=== PATIENT | female | born 1960 | race Caucasian/White ===

== ENCOUNTER 2021-01-08 07:07 | Inpatient (IN) | payer MEDICAID, SELFPAY ==
[2021-01-08] VITALS (15 sets, daily range): BP systolic 127–152; BP diastolic 85–105; PULSE 84–110; RESP 18–24; TEMP 36.3–37.3; O2SAT 90–99; BMI 21.1; BMI 19.7
--- NOTE | 2021-01-08 07:14 | W.ED.CHESTPA ---
HPI - Chest Pain General: Chief Complaint: Medical Clearance Stated Complaint: NONSTEMI-direct admit Time Seen by Provider: 01/08/21 07:11 Source: patient, RN notes reviewed and old records reviewed Mode of arrival: EMS Limitations: no limitations History of Present Illness: HPI narrative: This patient presents to the emergency department for medical screening exam for direct admission to the floor for a non-STEMI. Patient developed arrived from EMS from [facility] in [place]. Dr. Weber is the accepting physician. Cardiology patient was given Lovenox injection prior to leaving [facility]. Patient has a long history of smoking. States little bit of shortness of breath but denies any significant chest pain. MD complaint: chest heaviness Pertinent past history: coronary artery disease Onset: during rest Pain location: substernal Pain radiation: none Severity: moderate Quality: tightness Relieving factors: nothing Exacerbating factors: nothing Associated symptoms: Reports dyspnea; Deny abdominal pain, fever(s), nausea, palpitations or vomiting Review of Systems General: Reports: 10 or more systems reviewed and unremarkable except in HPI and below Const: Denies: fever(s) or chills Eyes: Denies: change in vision or eye discomfort ENMT: Denies: throat pain Card: Reports: chest pain and dyspnea on exertion; Denies: palpitations, irregular heart rhythm, swelling of feet/ankles or lightheadedness Resp: Reports: dyspnea; Denies: productive cough, non-productive cough, wheezing, stridor or pain on inspiration GI: Denies: abdominal pain, nausea or vomiting Musc: Denies: back pain Skin/Breast: Denies: rash Neuro: Denies: headache(s) or numbness in extremities Psych: Denies: anxiety or depression PFS ED PFSH: Social History (Updated 01/08/21 @ 07:24 by Shoaib Soto RN) Smoking and tobacco status: current every day smoker cigarettes Packs smoked per day: 1 Alcohol intake: current Alcohol intake frequency: few times a week Substance/Drug Use: never Physical Exam Const: COMMON NORMALS: no acute distress, average body habitus, patient oriented x3, no limitations, healthy appearing, alert and well nourished HENMT: COMMON NORMALS: normocephalic HEAD & SCALP: normocephalic Eye: COMMON NORMALS: Equal, round and reactive pupils present and EOMs intact bilaterally PUPIL: Yes Equal, round and reactive pupils present Neck/C-Spine: COMMON NORMALS: no JVD Chest: COMMONS NORMALS: normal inspection of the chest and normal palpation of entire chest wall Resp: COMMON NORMALS: normal respiratory effort, No retractions, No use of accessory muscles and clear to auscultation bilaterally EFFORT & INSPECTION: Yes able to speak in complete sentences AUSCULTATION: clear to auscultation bilaterally Cardio: COMMON NORMALS: no JVD, regular rate and regular rhythm RATE: regular rate RHYTHM: regular rhythm GI: COMMON NORMALS: Normal to inspection, nondistended, normoactive bowel sounds present and Soft to palpation PALPATION: Yes Soft to palpation Extremity: COMMON NORMALS: normal to inspection and full ROM Neuro: COMMON NORMALS: patient oriented x3 SENSORIUM/ORIENTATION: Yes alert Course ED course: Medical screening exam complete. Patient has admitted to the hospital for Dr. Weber who is excepting this patient. Dr. Weber will see patient upon arrival to floor. Vital Signs: Vital signs: Vital Signs Temperature 98.0 F 01/08/21 07:12 Pulse Rate 101 H 01/08/21 07:12 Respiratory Rate 24 H 01/08/21 07:12 Blood Pressure 134/93 01/08/21 07:12 Pulse Oximetry 99 01/08/21 07:12 MDM - Chest Pain Differential Diagnosis: Cardiac arrest differential diagnosis: Likely acute myocardial infarction EKG Data^: EKG 1: EKG interpretation date: 01/08/21 EKG interpretation time: 07:34 Prior EKG tracings: not available for review Ischemic changes: non-specific ST-T wave changes Interpretation: Sinus rhythm with a heart rate of 80 a possible left atrial enlargement moderate ST depression really nonspecific changes. Computer generated interpretation: Nonspecific EKG Discharge Plan Discharge Patient Disposition: Admitted As Inpatient Clinical Impression: Non-ST elevated myocardial infarction (non-STEMI) Condition: Stable Coding Level of Care Code ED Netsuite Developer for Ermelinda Fwd Exam Comprehensive
--- NOTE | 2021-01-08 07:18 | ECG_ITS ---
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 Measurements Intervals [place] Rate: 88 P: 72 HI: 139 QRS: 74 QRSD: 103 T: 70 QT: 395 QTc: 480 Interpretive Statements SINUS RHYTHM POSSIBLE LEFT ATRIAL ENLARGEMENT [-0.1mV P WAVE IN V1/V2] MODERATE ST DEPRESSION [0.05+ mV ST DEPRESSION] No previous ECG available for comparison Electronically Signed On 01-08-2021 19:22:10 STAGING TECHNICIAN by Nikki Restrepo M.D. [id number]
--- NOTE | 2021-01-08 09:05 | PC.PHAR ---
pt states she takes no prescription medications-pt states she only takes aspirin prn-pt states she is unsure if it is 81mg or 325mg-pt states she buys kcl over the counter-pt states she alternates by taking 2 tabs one day and then 1 tab the next day-pt states she took 2 tabs on 01/07/21-
--- NOTE | 2021-01-08 09:46 | PC.NURSE ---
patient arrived from er via stretcher. patient transferred by staff over to bed. vitals and weight obtained. assessment performed and charted. patient ambulated by self to bathroom. patient is A&O X3. call light within reach, no other needs identified at this time.
--- NOTE | 2021-01-08 11:58 | PC.NURSE ---
Dr. Franco gave verbal order for one time 325mg aspirin, and 0.5 inch nitro paste Q6h.
[2021-01-08] MEDS: aspirin 325 mg Tablet PO (12:28)
[2021-01-08] MEDS: nitroglycerin 1 gm/inch oint Pkt 0.5 INCH TOPICAL ×3 (12:28→23:27)
[2021-01-08] MEDS: pantoprazole DR 40 mg Tablet PO (12:28)
[2021-01-08] MEDS: lactated ringers 1,000 ML 100 ML IV (12:28)
--- NOTE | 2021-01-08 12:31 | PC.CHAP ---
Pastoral Care Encounter/Spiritual Assessment Type of Contact [] Declined pusher operator visit [] Patient/Family/Request visit [] Outpatient visit [] Follow-up visit [] Physician referral [] Code/Alert [] Routine visit [] Staff referral [] Actively dying [] Patient sleeping [] Family support [] [] Out of room [] Palliative care [] [] Receiving care in room [] Pre-surgical visit [] Trauma [] Long length of stay [] ICU visit [XX] Other:Staff told pusher operator not to see today. Relational/Emotional Strength [] Patient feels connected with others/family/visitors/staff [] Distress [] Loneliness/isolation [] Abandonment Spirituality of Patient [] Person of Mayra [] Attends Buddhism of their Mayra [] Believes in Prayer [] Reads Bible or Restorationism materials [] There are Spiritual issues to be addressed Clinical Data Manager Interventions [] Prayer [] Active listening [] Non-anxious presence [] Spiritual/emotional support [] Crisis/trauma care [] Spiritual counseling [] Bereavement support [] Provided bereavement packet [] Provided Bible/devotional materials [] Provided toy/stuffed animal, coloring book to patient or family member [] Provided Communion [] Anointing/Deposit [] Salvation [] Completed spiritual assessment [] Other: Impact on Illness or Injury [] Angry [] Fearful [] Anxious [] Often cries [] Exhaustion [] Unable to work [] Unable to attend pentecostalism [] Unable to walk/stand [] Unable to read [] Unable to drive [] Unable to eat/drink [] Unable to sleep [] Unable to be with family [] Patient intubated [] Other: Summary Time spent with patient
[2021-01-08 12:55] LABS: Basophils % 0.1 %; Hematocrit 35.3 % (37.0-47.0); Hemoglobin 11.6 g/dL (11.5-15.3); Lymphocytes # 0.6 10^3/uL (0.8-4.8); Lymphocytes % 4.4 %; Mean Corpuscular HGB Conc 32.9 g/dL (30.0-36.0); Mean Corpuscular Hemoglobin 29.7 pg (28.0-34.0); Mean Corpuscular Volume 90.5 fL (81-99); Mean Platelet Volume 9.8 fL (7.4-10.4); Monocytes # 0.2 10^3/uL (0.2-0.9); Monocytes % 1.2 %; Neutrophils # 12.94 10^3/uL (1.8-7.7); Neutrophils % 93.9 %; Nucleated Red Blood Cells % 0 %; Platelet Count 378 10^3/cmm (130-400); Red Cell Distribution Width 15.1 % (12.1-15.1); White Blood Count 13.8 10^3/uL (4.0-10.0)
[2021-01-08 13:14] LABS: INR 1.06 (0.8-1.2)
[2021-01-08 13:15] LABS: Partial Thromboplastin Time 36.6 SECONDS (23.9-36.7)
[2021-01-08 13:22] LABS: Alanine Aminotransferase 33 U/L (0-33); Albumin Level 3.6 g/dL (3.5-5.2); Alkaline Phosphatase 103 IU/L (35-105); Aspartate Amino Transferase 88 U/L (0-32); Blood Urea Nitrogen 5 mg/dL (8-23); Calcium 8.8 mg/dL (8.5-10.5); Carbon Dioxide 23 mmol/L (22-29); Chloride 99 mmol/L (98-107); Globulin 3.2 g/dL (1.3-4.6); Glomerular Filtration Rate 125.4 mL/min (90-130); Glucose 140 mg/dL (65-115); Magnesium 1.8 mg/dL (1.7-2.3); NT Pro B Type Natriuretic Pept 5372 pg/mL (0-125); Osmolality Calculated 278 mOsm/kg (285-295); Phosphorus 3.8 mg/dL (2.5-4.5); Sodium 134 mmol/L (136-145); Total Bilirubin 0.2 mg/dL (0.15-1.2); Total Protein 6.8 g/dL (6.6-8.7)
--- NOTE | 2021-01-08 13:28 | PM.HP ---
Providers/Chief Complaint Admitting Physician: Kaci Weber MD Chief Complaint: ELEVATED TROPONIN / DIRECT ADMIT History of Present Illness Deshawn Miller is a 60 year old female transferred from outside hospital where patient presented with gradually worsening shortness of breath over the last 3 days. She denied chest pain or abdominal pain. She has been having worsening paroxysmal atrial dyspnea and orthopnea but denies lower extremity swelling. She is a heavy smoker for many years and reports rarely productive smoker's cough which is unchanged in quantity or quality. She denies fevers or chills. At [facility] she was evaluated and found to have non-ST elevation CA and acute heart failure prompting further transfer and evaluation to our facility. She does not have a primary care physician. Reports only taking aspirin as needed and potassium that was prescribed by some physician long time ago. During my evaluation patient is chest pain-free. Review of Systems Const: Denies: fever(s) or chills Eyes: Denies: change in vision ENMT: Denies: throat pain or change in hearing Card: Denies: chest pain, edema or lightheadedness Resp: Reports: dyspnea; Denies: productive cough GI: Reports: constipation; Denies: abdominal pain, nausea, vomiting, dysphagia, diarrhea, hematochezia or melena : Denies: difficulty voiding Musc: Denies: joint pain or joint swelling Skin/Breast: Denies: rash or erythema Neuro: Denies: headache(s) or weakness in extremities Psych: Denies: depression or suicidal ideation Endo: Denies: excessive sweating Umesh/Lymph: Denies: easy bleeding or tender lymph nodes All/Imm: Denies: throat swelling Medications/Allergies Home Medications Medication Instructions Recorded Confirmed Last Taken Type aspirin 1 - 2 tab PO PRN 01/08/21 01/08/21 Unknown History ibuprofen [Advil] 200 mg PO PRN 01/08/21 01/08/21 Unknown History multivitamin 1 tab PO DAILY@08 01/08/21 01/08/21 01/07/21 History potassium gluconate See Rx Instructions .ROUTE .COMPLEX 01/08/21 01/08/21 01/07/21 History 2 tabs Allergies Allergy/AdvReac Type Severity Reaction Status Date / Time No Known Allergies Allergy Verified 01/08/21 09:04 PFSH Acute PFSH: Family History (Updated 01/08/21 @ 13:32 by Kvng Franco MD) Mother CAD (coronary artery disease) Diabetes Father CAD (coronary artery disease) Social History (Updated 01/08/21 @ 07:24 by Shoaib Soto RN) Smoking and tobacco status: current every day smoker cigarettes Packs smoked per day: 1 Alcohol intake: current Alcohol intake frequency: few times a week Substance/Drug Use: never Vitals/I&O/Wt Last Vital Signs Temp 97.4 F L 01/08/21 11:23 Pulse 84 01/08/21 11:23 Resp 24 H 01/08/21 11:23 BP 138/89 01/08/21 11:23 Pulse Ox 92 01/08/21 11:23 Weight last 48 hrs Weight 47.4 kg Weight 50.802 kg Physical Exam Const: COMMON NORMALS: no acute distress, patient oriented x3 and alert HENMT: COMMON NORMALS: normocephalic and atraumatic HEAD & SCALP: normocephalic and atraumatic Eye: COMMON NORMALS: EOMs intact bilaterally, conjunctivae normal and no scleral icterus ALIGNMENT: No alignment normal and Yes esotropia CONJUNCTIVA: Yes conjunctivae normal Neck/C-Spine: COMMON NORMALS: no lymphadenopathy and no meningeal signs Lymph: LYMPHATIC: no lymphadenopathy noted Chest: COMMONS NORMALS: normal palpation of entire chest wall Resp: COMMON NORMALS: No use of accessory muscles OTHER: Minimal bibasilar Rales and overall significant decreased air movement but no wheezing or rhonchi appreciated. Cardio: COMMON NORMALS: regular rate, regular rhythm and No murmurs present (Cardio) RATE: regular rate RHYTHM: regular rhythm OTHER: No lower extremity edema GI: COMMON NORMALS: Soft to palpation and non-tender PALPATION: Yes Soft to palpation RECTAL EXAM: deferred : COMMON NORMALS: Yes no CVA tenderness BLADDER/KIDNEY EXAM: Yes no CVA tenderness Back/Pelvis: COMMON NORMALS: no CVA tenderness and thoracic and lumbar spine normal to inspection Extremity: COMMON NORMALS: normal to inspection and capillary refill normal Neuro: COMMON NORMALS: patient oriented x3 and no focal motor deficits SENSORIUM/ORIENTATION: Yes alert MENINGEAL SIGNS: Yes no meningeal signs Psych: COMMON NORMALS: mental status grossly normal, Normal thought process present and cooperative THOUGHT PROCESS: Normal thought process present Skin: COMMON NORMALS: no rashes or lesions noted GENERAL SKIN EXAM: no rashes or lesions noted Data : 01/08/21 12:33 01/08/21 12:33 A&P Assessment and plan (1) Non-ST elevated myocardial infarction (non-STEMI): Status: Acute (2) Acute heart failure: Specifics unknown. Status: Acute (3) COPD (chronic obstructive pulmonary disease): Not in exacerbation Status: Acute (4) Tobacco abuse: Status: Acute Additional A&P Information PLAN: Discussed with Dr. Restrepo who will see patient in consultation. Will add half inch of nitroglycerin ointment every 6 hours and give 1 dose of Lasix. Therapeutically anticoagulated with Lovenox and start patient on aspirin and statin. Obtain echocardiogram to evaluate wall motion and ejection fraction. Discussed with patient regarding importance of smoking cessation. Patient voiced understanding and agreed to try nicotine patch. Obtain UA to rule out UTI Attestations Medical Necessity Statement*: CA and heart failure requires close inpatient monitoring, treatment and evaluation. I expect patient will require more than 2 midnights. Time Spent in Patient Care: Greater than 35 minutes Coding Level of Care Code Acute Horseradish Grinder for Ermelinda Brown Diagnoses Non-ST elevated myocardial infarction (non-STEMI) I21.4 Acute heart failure I50.9 COPD (chronic obstructive pulmonary disease) J44.9 Tobacco abuse Z72.0
--- NOTE | 2021-01-08 13:43 | USCV_ITS ---
Deshawn Miller Age: 60 Gender: F : 1960 Exam Date: 01/08/2021 14:02 Ordering Phys: Kvng Franco MD Technologist: Mando Garcia Exam Location: [facility] [place] Indication: [place] HEART FAILURE BP: 152 / 95 HR: 105 Rhythm: Sinus Technical Quality: Good MEASUREMENTS (Male / Female) Normal Values 2D ECHO LV Diastolic Diameter PLAX 4.2 cm 4.2 - 5.9 / 3.9 - 5.3 cm LV Systolic Diameter PLAX 3.8 cm IVS Diastolic Thickness 0.8 cm 0.6 - 1.0 / 0.6 - 0.9 cm IVS Systolic Thickness 1.0 cm LVPW Diastolic Thickness 0.9 cm 0.6 - 1.0 / 0.6 - 0.9 cm LVPW Systolic Thickness 1.1 cm LVOT Diameter 2.0 cm LV Ejection Fraction 2D Teich 10.5 % LV Ejection Fraction MOD 2C 45.5 % LV Ejection Fraction 2C AL 48.2 % LA Diameter 3.9 cm LA Width 4.2 cm LA Height 4.2 cm RA Width 4.0 cm RA Height 3.7 cm M-MODE LV Diastolic Diameter MM 4.3 cm 4.2 - 5.9 / 3.9 - 5.3 cm LV Systolic Diameter MM 3.5 cm LV Ejection Fraction MM Teich 40.4 % IVS Diastolic Thickness MM 0.5 cm 0.6 - 1.0 / 0.6 - 0.9 cm IVS Systolic Thickness MM 1.2 cm LVPW Diastolic Thickness MM 1.1 cm 0.6 - 1.0 / 0.6 - 0.9 cm LVPW Systolic Thickness MM 1.1 cm RV Diastolic Diameter MM 1.0 cm Aortic Annulus Diameter 3.2 cm LA Ao Ratio MM 1.3 MV E Point Septal Separation 2.3 cm DOPPLER AV Peak Velocity 132.0 cm/s LVOT Peak Velocity 77.0 cm/s AV Area Cont Eq vti 2.0 cm squared AV Area Cont Eq pk 1.9 cm squared MV Area PHT 5.0 cm squared Mitral E to A Ratio 1.0 MV E' Velocity 45.0 cm/s Mitral E to MV E' Ratio 17.4 Mitral E to LV E' Lateral Ratio 13.7 Mitral E to LV E' Septal Ratio 23.9 TR Peak Velocity 127.3 cm/s TR Peak Gradient 6.5 mmHg TV Peak E Velocity 98.0 cm/s Right Atrial Pressure 3.0 mmHg Pulmonary Artery Systolic Pressu 9.5 mmHg PV Peak Velocity 109.0 cm/s FINDINGS Left Ventricle Diffuse hypokinesis left ventricle with ejection fraction of around 35-40% Grade I/IV diastolic dysfunction (abnormal relaxation filling pattern), normal to mildly elevated filling pressures. Right Ventricle Normal right ventricular size and systolic function. Right Atrium Appears to be of normal size Left Atrium Appears to be of normal size Mitral Valve Thickened mitral valve. Mild mitral valve regurgitation. Aortic Valve Thickened aortic valve. Tricuspid Valve No gross abnormalities noted Pulmonic Valve Pulmonic valve not well visualized. Pericardium Normal pericardium without effusion. Aorta Normal ascending aorta dimension. CONCLUSIONS Diffuse hypokinesis left ventricle with ejection fraction of around 35-40% Grade I/IV diastolic dysfunction (abnormal relaxation filling pattern), normal to mildly elevated filling pressures. Thickened mitral valve. Mild mitral valve regurgitation. Thickened aortic valve. There is no pericardial effusion. There are no intracardiac masses. No previous study is available for comparison. Dr Nikki Restrepo MD FACC (Electronically Signed) Final Date: 08 January 2021 16:38 S
[2021-01-08] MEDS: FUROsemide 10 mg/mL SDV 4mL 40 MG IVP (14:11)
[2021-01-08] MEDS: enoxaparin 60 mg/0.6 mL Syringe 50 MG SUBCUT (14:11)
[2021-01-08 15:06] LABS: Add Urine Microscopic? NO
--- NOTE | 2021-01-08 15:17 | PC.NURSE ---
Dr. Franco notified of patient getting up to bedside commode and heart rate going to 130's. Patient is back at resting with a heart rate of 105-109.
[2021-01-08 15:23] LABS: Bilirubin Urine Neg (Negative); Blood Urine Neg (Negative); Glucose Urine UA Norm (Normal); Ketones Urine Negative (Negative); Leukocyte Esterase Urine Negative (Negative); Nitrate Urine Negative (Negative); Protein Urine Neg (Negative); Urine Appearance Clear (CLEAR); Urine Color Yellow (Yellow); Urobilinogen Urine Norm (Negative); pH Urine 6 (5-7)
--- NOTE | 2021-01-08 15:24 | P.CONIM_ITS ---
Providers/Reason For Consult Consulting Physican/Specialty*: RA KAT/Cardiology Reason for Consult*: NSTEMI/ CHF Attending Physician: Kvng Franco MD History of Present Illness History of Present Illness Deshawn Miller is a 60 year old female, is transferred from the [facility] in [place] where she presented with complaints of cough and? Shortness of breath. She was found to have elevated BNP and troponin T. She is transferred to our hospital for further evaluation management. Patient is a poor historian. According to her, she has not been to a physician for many years. For the last 1 week, she been having cough. She might have had some shortness of breath but she does not think that the shortness of breath was a major concern for her. The cough was getting worse and for that reason, she went to the hospital emergency room. Because of the elevated BNP and the troponin T, she was transferred to our hospital. The repeated troponin T in our hospital is 1166 with a BNP of 5372. Patient has no previous history for any coronary disease, myocardial infarction or congestive heart failure. She has a history of heavy smoking abuse. She smokes 2 pack a day for the last more than 30 years. She also smokes marijuana off and on. Occasional alcohol intake. No IV drug abuse or any other substance abuse. She is and lives with her children. She has no documented history for high blood pressure or diabetes. No history for CVA, peripheral artery disease, kidney disease, liver disease or bleeding disorders. She denies any chest pain. No other specific complaints at this time. At the time of my examination, she is back to her baseline. Review of Systems Narrative: CONSTITUTIONAL: No fever or chills. EYES: No blurring of vision or other visual disturbances lately. ENT: No hoarseness of voice, auditory disturbances or sore throat. CARDIOVASCULAR: As mentioned above. RESPIRATORY: Cough as mentioned above GASTROINTESTINAL: No hematemesis or melena. GENITOURINARY: No dysuria or hematuria. INTEGUMENTARY: No skin rashes or history of skin cancer. NEURO: No transient ischemic attacks or amaurosis. PSYCHIATRIC: No history of psychosis or major depression. HEMATOLOGIC: No bleeding disorders or significant anemia. ENDOCRINE: No history of polyuria or polydipsia. MUSCULOSKELETAL: No recent joint pain or swelling. ALLERGY/IMMUNOLOGY: As mentioned above. Meds/Allergies Home Medications and Allergies Home Medications Medication Instructions Recorded Confirmed Last Taken Type aspirin 1 - 2 tab PO PRN 01/08/21 01/08/21 Unknown History ibuprofen [Advil] 200 mg PO PRN 01/08/21 01/08/21 Unknown History multivitamin 1 tab PO DAILY@08 01/08/21 01/08/21 01/07/21 History potassium gluconate See Rx Instructions .ROUTE .COMPLEX 01/08/21 01/08/21 01/07/21 History 2 tabs Allergies Allergy/AdvReac Type Severity Reaction Status Date / Time No Known Allergies Allergy Verified 01/08/21 09:04 Current Medications Current Medications Generic Name Dose Route Start Last Admin Trade Name Freq PRN Reason Stop Dose Admin Enoxaparin Sodium 50 mg 01/08/21 15:00 01/08/21 14:11 Enoxaparin 60 Mg/0.6 Ml Syringe SUBCUT 50 mg Q12H JUNAID Administration Nitroglycerin 0.5 inch 01/08/21 12:00 01/08/21 12:28 Nitroglycerin 1 Gm/Inch Oint Pkt TOPICAL 0.5 inch Q6H JUNAID Administration Pantoprazole Sodium 40 mg 01/08/21 11:45 01/08/21 12:[address] 40 Mg Tablet PO 40 mg DAILY JUNAID Administration PFSH Acute PFSH: Family History (Updated 01/08/21 @ 18:39 by Nikki Kat MD) Mother CAD (coronary artery disease) Diabetes Father CAD (coronary artery disease) Brother CAD (coronary artery disease) 3 of her brothers of myocardial infarction in their 50s Social History Smoking and tobacco status: current every day smoker cigarettes Packs smoked per day: 1 Alcohol intake: current Alcohol intake frequency: few times a week Substance/Drug Use: never Vitals/I&O/Wt Last Vital Signs Temp 97.4 F L 01/08/21 11:23 Pulse 110 H 01/08/21 14:43 Resp 24 H 01/08/21 11:23 BP 138/89 01/08/21 11:23 Pulse Ox 95 01/08/21 14:43 01/08/21 01/08/21 01/08/21 06:59 14:59 22:59 Intake Total 270 / 270 Output Total 450 / 450 Balance 270 / 270 -450 / -180 Weight last 48 hrs Weight 104 lb 8 oz Weight 112 lb Physical Exam Narrative: EXAM NARRATIVE: GENERAL: The patient is alert and oriented times three. Not in any acute distress. Lean with a short frame HEENT: No significant pallor, icterus or lymphadenopathy. The pupils are reactant to light. Oral cavity: There are no mucous membrane lesions. Funduscopic examination: The fundus is not visualized NECK: Trachea appears to be central. No masses noted. No JVD or thyromegaly appreciated. No carotid bruit. RESPIRATORY: Chest is symmetrical. No intercostals muscle retraction or any accessory muscle activation. There is no chest wall tenderness. Breath sounds are heard bilaterally. No rales or rhonchi heard. No evidence of any consolidation. Few fine rales in the base. BREASTS: Deferred. HEART: The PMI is in the fifth left intercostal space just in the midclavicular line. First and second heart sounds are normal. No S3. S4 is present. Short systolic murmur in the left sternal border. No diastolic murmurs. No pericardial rub. ABDOMEN: No vessel pulsations or distention. No tenderness. No organomegaly appreciated. No abdominal bruit. Bowel sounds are normally heard. : Deferred. RECTAL: Deferred. LYMPHATIC: No lymphadenopathy noted in the neck or groin. EXTREMITIES: No edema or cyanosis. No clubbing. Peripheral pulses are palpable but weak bilaterally. No cyanosis. MUSCULOSKELETAL: No acute joint deformities or swelling. SKIN: There are no significant scars or skin rash noted. NEUROPSYCHIATRIC: The patient is alert and oriented x3. Appears to be in a good mood. The higher functions are grossly within normal limits. No tremors or rigidity noted. Data Labs: Other Labs: Laboratory Last Values WBC 13.8 10^3/uL (4.0 -10.0) H 01/08/21 12:33 RBC 3.90 10^6/uL (4.1 -5.3) L 01/08/21 12:33 Hgb 11.6 g/dL (11.5-1 5.3) 01/08/21 12:33 Hct 35.3 % (37.0-47.0 ) L 01/08/21 12:33 MCV 90.5 fL (81-99) 01/08/21 12: MCH 29.7 pg (28.0-34. 0) 01/08/21 12: MCHC 32.9 g/dL (30.0-3 6.0) 01/08/21 12:33 RDW 15.1 % (12.1-15.1 ) 01/08/21 12:33 Plt Count 378 10^3/cmm (130 -400) 01/08/21 12: MPV 9.8 fL (7.4-10.4) 01/08/21 12:33 Neut % (Auto) 93.9 % 01/08/21 12: Lymph % (Auto) 4.4 % 01/08/21 12: [place] % (Auto) 1.2 % 01/08/21 12: Eos % (Auto) 0.0 % 01/08/21 12: Baso % (Auto) 0.1 % 01/08/21 12: Neut # (Auto) 12.94 10^3/uL (1. 8-7.7) H 01/08/21 12: Lymph # (Auto) 0.6 10^3/uL (0.8- 4.8) L 01/08/21 12: [place] # (Auto) 0.2 10^3/uL (0.2- 0.9) 01/08/21 12: Eos # (Auto) 0.0 10^3/uL (0.0- 0.8) 01/08/21 12: Baso # (Auto) 0.0 10^3/uL (0.0- 0.1) 01/08/21 12: Nucleated RBC % (a uto) 0 % 01/08/21 12: Nucleated RBCs # 0.0 /100WBC 01/08/21 12: PT 14.10 SECONDS (12 .1-14.9) 01/08/21 12:33 INR 1.06 (0.8-1.2) 01/08/21 12:33 APTT 36.6 SECONDS (23. 9-36.7) 01/08/21 12:33 Sodium 134 mmol/L (136-1 45) L 01/08/21 12:33 Potassium 4.0 mmol/L (3.5-5 .1) 01/08/21 12:33 Chloride 99 mmol/L (98-107 ) 01/08/21 12:33 Carbon Dioxide 23 mmol/L (22-29) 01/08/21 12:33 Anion Gap 16.0 (5-19) 01/08/21 12:33 BUN 5 mg/dL (8-23) L 01/08/21 12:33 Creatinine 0.5 mg/dL (0.5-0. 9) 01/08/21 12:33 GFR Calculation 125.4 mL/min (90- 130) 01/08/21 12:33 Glucose 140 mg/dL (65-115 ) H 01/08/21 12:33 Calculated Osmolal ity 278 mOsm/kg (285- 295) L 01/08/21 12:33 Calcium 8.8 mg/dL (8.5-10 .5) 01/08/21 12:33 Phosphorus 3.8 mg/dL (2.5-4. 5) 01/08/21 12:33 Magnesium 1.8 mg/dL (1.7-2. 3) 01/08/21 12:33 Total Bilirubin 0.2 mg/dL (0.15-1 .2) 01/08/21 12:33 AST 88 U/L (0-32) H 01/08/21 12:33 ALT 33 U/L (0-33) 01/08/21 12:33 Alkaline Phosphata se 103 IU/L (35-105) 01/08/21 12:33 NT-Pro-B Natriuret Pep 5372 pg/mL (0-125 ) H 01/08/21 12:33 Total Protein 6.8 g/dL (6.6-8.7 ) 01/08/21 12:33 Albumin 3.6 g/dL (3.5-5.2 ) 01/08/21 12:33 Globulin 3.2 g/dL (1.3-4.6 ) 01/08/21 12:33 TSH 0.90 uIU/mL (0.27 -4.20) 01/08/21 12:33 Urine Color Yellow (Yellow) 01/08/21 14:54 Urine Appearance Clear (CLEAR) 01/08/21 14:54 Urine pH 6 (5-7) 01/08/21 14:54 Ur Specific Gravit y 1.010 (1.005-1.0 30) 01/08/21 14:54 Urine Protein Neg (Negative) 01/08/21 14:54 Urine Glucose (UA) Norm (Normal) 01/08/21 14:54 Urine Ketones Negative (Negati ve) 01/08/21 14:54 Urine Blood Neg (Negative) 01/08/21 14:54 Urine Nitrate Negative (Negati ve) 01/08/21 14:54 Urine Bilirubin Neg (Negative) 01/08/21 14:54 Urine Urobilinogen Norm mg/dL (Negat jenelle) 01/08/21 14:54 Ur Leukocyte Angela ase Negative (Negati ve) 01/08/21 14:54 Imaging^: Echo: My impression: Diffuse hypokinesis left ventricle with ejection fraction of around 35-40% Grade I/IV diastolic dysfunction (abnormal relaxation filling pattern), normal to mildly elevated filling pressures. Thickened mitral valve. Mild mitral valve regurgitation. Thickened aortic valve. There is no pericardial effusion. There are no intracardiac masses. No previous study is available for comparison. EKG^: EKG 1: My Interpretation: EKG showed a sinus rhythm with a rate of [address] changes. Possible left atrial enlargement. A&P Assessment and plan (1) Acute on chronic systolic heart failure: Patient's clinical features are consistent with acute on chronic systolic heart failure. Her echocardiogram reveals ejection fraction around 35 to 40%. According the patient, she was mainly complaining about cough with no significant shortness of breath? There was mention of shortness of breath as the main presenting complaints in the documentations of other providers. Patient denied any chest pain or significant shortness of breath to me. There is no significant ischemic changes on the EKG. The etiology of the systolic dysfunction is not clear at this time. Possibility of underlying coronary disease causing this is a consideration. Apparently she has a strong family history for premature atherosclerotic heart disease.(3 of her brothers had a myocardial infarction in their 50s and of the same?.) She may be carefully treated with diuretics. I also may start her on a low-dose of ARB, spironolactone and a beta-alize. Status: Acute (2) Elevated troponin: Non-ST elevation SC versus type II SC are considerations. Patient apparently did not have any significant chest pain. The reliability of her history is questionable. Status: Acute (3) COPD (chronic obstructive pulmonary disease): Patient has a history of heavy smoking abuse. However she is noted any medications. Status: Acute Qualifiers: COPD type: unspecified COPD Qualified Code(s): J44.9 - Chronic obstructive pulmonary disease, unspecified (4) Tobacco abuse: Smokes 2 pack a day for the last more than 30 years. She also smokes marijuana intermittently. No IV drug abuse or any other substance abuse. Advised strongly to quit smoking. She seems understand implications. Status: Acute (5) Elevated blood pressure reading: Patient currently has stage II hypertension. Will be starting her on antihypertensive medications. We will closely monitor the blood pressure while being in the hospital. Status: Acute Additional A&P Information Other problems are Elevated liver enzymes Elevated white cell count Mild hyponatremia based on the patient's clinical progress, further recommendations will be made. Patient may benefit from a cardiac catheterization, to further evaluate her coronary status and decide on further management. I will do a repeat troponin T to evaluate the troponin trend. I may start her on losartan 25 mg p.o. now and daily. Plavix 300 mg p.o. now followed by 75 mg p.o. daily. Spironolactone 25 mg p.o. daily. Repeat BMP in the morning Based on the patient's clinical progress and the results of the above, further recommendations will be made. 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
[2021-01-08 17:21] LABS: Troponin T (5th) Once 1166 ng/L (0-10)
[2021-01-08] MEDS: metoprolol tartrate 25 mg Tablet PO ×2 (17:48→20:21)
[2021-01-08] MEDS: clopidogrel 300 mg Tablet PO (18:48)
[2021-01-08] MEDS: losartan 50 mg Tablet 25 MG PO (18:48)
[2021-01-08] MEDS: spironolactone 25 mg Tablet PO (18:49)
--- NOTE | 2021-01-08 19:26 | PC.NURSE ---
Received report from Nayeli Nichols RN. Patient resting in bed watching tv. Patient denies pain or discomforts at this time. Denies needs. Call light in reach. No distress observed.
[2021-01-08] MEDS: atorvastatin 40 mg Tablet PO (20:21)
[2021-01-09] VITALS (9 sets, daily range): BP systolic 117–153; BP diastolic 78–98; PULSE 91–122; RESP 17–23; TEMP 36.6–37.4; O2SAT 84–93
[2021-01-09] MEDS: enoxaparin 60 mg/0.6 mL Syringe 50 MG SUBCUT ×2 (03:19→15:32)
--- NOTE | 2021-01-09 03:21 | PC.NURSE ---
Administered Lovenox as ordered. Patient stated, I hate those shots in the belly. Instructed patient on need for the Lovenox and patient verbalized understanding however still does not like them.
--- NOTE | 2021-01-09 03:24 | PC.NURSE ---
Patient assisted up to bathroom. Patient reports feeling more short of breath with exertion. Patient SpO2 decreases during sleep and exertion to 83-85%. Provided NC at 2 L to assist with increased oxygen demand.
[2021-01-09 04:38] LABS: Basophils # 0.1 10^3/uL (0.0-0.1); Basophils % 0.3 %; Hematocrit 34.8 % (37.0-47.0); Hemoglobin 11.3 g/dL (11.5-15.3); Lymphocytes # 2.2 10^3/uL (0.8-4.8); Mean Corpuscular HGB Conc 32.5 g/dL (30.0-36.0); Mean Corpuscular Hemoglobin 29.5 pg (28.0-34.0); Mean Corpuscular Volume 90.9 fL (81-99); Mean Platelet Volume 10.2 fL (7.4-10.4); Monocytes # 1.1 10^3/uL (0.2-0.9); Monocytes % 5.8 %; Neutrophils # 14.75 10^3/uL (1.8-7.7); Neutrophils % 81.5 %; Nucleated Red Blood Cells % 0 %; Platelet Count 372 10^3/cmm (130-400); Red Blood Count 3.83 10^6/uL (4.1-5.3); Red Cell Distribution Width 15.2 % (12.1-15.1); White Blood Count 18.1 10^3/uL (4.0-10.0)
[2021-01-09 05:14] LABS: Procalcitonin 0.07 ng/mL (0-0.5)
[2021-01-09 05:28] LABS: Alanine Aminotransferase 27 U/L (0-33); Albumin Level 3.4 g/dL (3.5-5.2); Alkaline Phosphatase 97 IU/L (35-105); Anion Gap 14.9 (5-19); Aspartate Amino Transferase 53 U/L (0-32); Blood Urea Nitrogen 14 mg/dL (8-23); Calcium 9.1 mg/dL (8.5-10.5); Carbon Dioxide 24 mmol/L (22-29); Chloride 95 mmol/L (98-107); Chol HDL Ratio 3.67 mg/dL (0.0-4.40); Cholesterol 158 mg/dL (0-200); Creatinine Clr Calc Pharmacy 74.0515; Globulin 3.3 g/dL (1.3-4.6); Glomerular Filtration Rate 101.6 mL/min (90-130); Glucose 111 mg/dL (65-115); HDL Cholesterol 43 mg/dL (60-100); LDL Cholesterol Calculated 84 mg/dL (50-129); LDL HDL Ratio 1.95 RATIO (0.00-3.22); Magnesium 1.8 mg/dL (1.7-2.3); Osmolality Calculated 271 mOsm/kg (285-295); Phosphorus 3.4 mg/dL (2.5-4.5); Potassium 3.9 mmol/L (3.5-5.1); Sodium 130 mmol/L (136-145); Total Bilirubin 0.3 mg/dL (0.15-1.2); Total Protein 6.7 g/dL (6.6-8.7); Triglycerides 157 mg/dL (0-150)
[2021-01-09] MEDS: nitroglycerin 1 gm/inch oint Pkt 0.5 INCH TOPICAL ×3 (06:03→18:01)
[2021-01-09 06:34] LABS: Estmated Average Glucose 100; Hemoglobin A1C 5.1 % (4.0-6.0)
--- NOTE | 2021-01-09 08:20 | P.PN_ITS ---
Subjective Subjective: Interval history: Patient reports feeling better this morning. Denies shortness of breath or chest pain. Reports that she wants to go home. I had extensive discussion regarding importance of appropriate evaluation of coronary arteries and therefore if she decides to leave it will have to be AGAINST MEDICAL ADVICE. I have discussed that without appropriate evaluation a nd treatment relating may result in serious morbidity/disability and even mortality. Patient voiced understanding. White blood cell count increased and appears to be related to stress. She denies cough. Denies chest or abdominal pain. Denies any problems with urination. Vitals/I&O/Wt Last Vital Signs Temp 99.4 F 01/09/21 07:46 Pulse 122 H 01/09/21 07:46 Resp 17 01/09/21 07:46 BP 133/93 01/09/21 07:46 Pulse Ox 84 L 01/09/21 07:46 01/08/21 01/09/21 01/09/21 22:59 06:59 14:59 Intake Total 600 / 870 Output Total 450 / 450 Balance 150 / 420 Weight last 48 hrs Weight 47.4 kg Weight 50.802 kg Physical Exam Narrative: EXAM NARRATIVE: Lungs with minimal bibasilar Rales. Heart is regular. No lower extremity edema. Abdomen is soft and nontender with positive bowel sounds. Data : 01/09/21 02:55 01/09/21 02:55 A&P Assessment and plan (1) Non-ST elevated myocardial infarction (non-STEMI): Most likely type I. Status: Acute (2) Acute heart failure: Acute systolic heart failure. EF 35-40% Status: Acute (3) COPD (chronic obstructive pulmonary disease): Not in exacerbation Status: Acute Qualifiers: COPD type: unspecified COPD Qualified Code(s): J44.9 - Chronic obstructive pulmonary disease, unspecified (4) Tobacco abuse: Status: Acute Additional A&P Information PLAN: Again discussed regarding importance of smoking cessation. Patient voiced understanding. Continue current monitoring and treatment and start patient on Lasix and potassium daily Patient will require coronary angiogram for further evaluation. Monitor WBC. Consider imaging if WBC continues to increase. Attestations Medical Necessity Statement*: Patient with non-ST elevation PA and acute systolic heart failure requires close inpatient monitoring, treatment and evaluation. 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
--- NOTE | 2021-01-09 09:15 | PM.PN ---
Subjective Subjective: Interval history: Patient is feeling better. Shortness of breath is much improved. She seems to be confused about her history. Yesterday she was denying any shortness of breath to me. Today she says she was very short of breath at home, unable to move around. She also has been having chest pains for several days prior to be seen at the [facility] emergency room in [place]. Currently she has no chest pain. Her shortness of breath has significantly improved. Denies any palpitations, chest pain, dizziness or syncopal episodes. Medications: Reviewed: Yes Medication Review Details: Current Medications Aspirin (Aspirin 81 Mg Ec Tablet) 81 mg PO DAILY [facility] Atorvastatin Calcium (Atorvastatin 40 Mg Tablet) 40 mg PO BEDTIME [facility] Last Admin: 01/08/21 20:21 Dose: 40 mg Documented by: Bisacodyl (Bisacodyl 5 Mg Tablet) 10 mg PO DAILY PRN PRN Reason: CONSTIPATION Enoxaparin Sodium (Enoxaparin 60 Mg/0.6 Ml Syringe) 50 mg SUBCUT Q12H [facility] Last Admin: 01/09/21 03:19 Dose: 50 mg Documented by: Furosemide (Furosemide 10 Mg/Ml Sdv 4ml) 40 mg IVP Q24H [facility] Losartan Potassium (Losartan 50 Mg Tablet) 25 mg PO DAILY [facility] Last Admin: 01/08/21 18:48 Dose: 25 mg Documented by: Metoprolol Tartrate (Metoprolol Tartrate 25 Mg Tablet) 25 mg PO BID@0900,2100 [facility] Last Admin: 01/08/21 20:21 Dose: 25 mg Documented by: Morphine Sulfate (Morphine 4 Mg/Ml Sdv 1 Ml) 2 mg IVP Q4H PRN PRN Reason: SEVERE PAIN Multivitamins Therapeutic (Multivitamin Therapeutic Tablet) 1 tab PO DAILY@08 [facility] Nitroglycerin (Nitroglycerin 1 Gm/Inch Oint Pkt) 0.5 inch TOPICAL Q6H [facility] Last Admin: 01/09/21 06:03 Dose: 0.5 inch Documented by: Ondansetron HCl (Ondansetron 2 Mg/Ml Sdv 2 Ml) 4 mg IVP Q8H PRN PRN Reason: vomiting, or N/V if npo Pantoprazole Sodium (Pantoprazole Dr 40 Mg Tablet) 40 mg PO DAILY [facility] Last Admin: 01/08/21 12:28 Dose: 40 mg Documented by: Potassium Chloride (Potassium Chloride Er 20 Meq Tablet) 40 meq PO DAILY [facility] Spironolactone (Spironolactone 25 Mg Tablet) 25 mg PO DAILY [facility] Last Admin: 01/08/21 18:49 Dose: 25 mg Documented by: Vitals/I&O/Wt Last Vital Signs Temp 99.4 F 01/09/21 07:46 Pulse 122 H 01/09/21 07:46 Resp 17 01/09/21 07:46 BP 133/93 01/09/21 07:46 Pulse Ox 84 L 01/09/21 07:46 01/08/21 01/09/21 01/09/21 22:59 06:59 14:59 Intake Total 600 / 870 360 / 360 Output Total 450 / 450 Balance 150 / 420 360 / 360 Weight last 48 hrs Weight 104 lb 8 oz Weight 112 lb Physical Exam Narrative: EXAM NARRATIVE: GENERAL: The patient is alert and oriented times three. Not in any acute distress. Lean with a short frame HEENT: No significant pallor, icterus or lymphadenopathy. The pupils are reactant to light. Oral cavity: There are no mucous membrane lesions. Funduscopic examination: The fundus is not visualized NECK: Trachea appears to be central. No masses noted. No JVD or thyromegaly appreciated. No carotid bruit. RESPIRATORY: Chest is symmetrical. No intercostals muscle retraction or any accessory muscle activation. There is no chest wall tenderness. Breath sounds are heard bilaterally. No rales or rhonchi heard. No evidence of any consolidation. Few fine rales in the base. BREASTS: Deferred. HEART: The heart sounds are normal. No S3 or S4. Short systolic murmur in the mitral area. No diastolic murmurs. ABDOMEN: No vessel pulsations or distention. No tenderness. No organomegaly appreciated. No abdominal bruit. Bowel sounds are normally heard. : Deferred. RECTAL: Deferred. LYMPHATIC: No lymphadenopathy noted in the neck or groin. EXTREMITIES: No edema or cyanosis. No clubbing. Peripheral pulses are palpable but weak bilaterally. No cyanosis. MUSCULOSKELETAL: No acute joint deformities or swelling. SKIN: There are no significant scars or skin rash noted. NEUROPSYCHIATRIC: No focal motor deficits. Data : 01/09/21 02:55 01/09/21 02:55 A&P Assessment and plan (1) Acute on chronic systolic heart failure: Most likely this patient had non-ST elevation myocardial infarction complicated with congestive heart failure. Currently she seems to be fairly stable. Her heart failure seems to be getting compensated. She has no recurrence of chest pain. May be appropriate to continue on the Lovenox and the Plavix at this point. She requires a cardiac catheterization, to further evaluate the coronary status and decide on further management. However the patient wants to wait for a while. She would like to talk to the family and then make a decision later on. Apparently she has no phone numbers for the family. She is waiting for them to call her. She will let me know, when she makes up her mind. Status: Acute (2) Elevated troponin: Most likely from the non-ST elevation myocardial infarction. Will do a repeat troponin T today to evaluate the trend. She may continue the current medications for the time being. Status: Acute (3) COPD (chronic obstructive pulmonary disease): Patient has a history of heavy smoking abuse. However she is noted any medications. Status: Acute Qualifiers: COPD type: unspecified COPD Qualified Code(s): J44.9 - Chronic obstructive pulmonary disease, unspecified (4) Tobacco abuse: Smokes 2 pack a day for the last more than 30 years. She also smokes marijuana intermittently. No IV drug abuse or any other substance abuse. Advised strongly to quit smoking. She seems understand implications. Status: Acute (5) Elevated blood pressure reading: The dose of the metoprolol was increased to 50 mg p.o. twice daily. Her blood pressure is currently under control. We will continue monitoring the blood pressure and optimize the antihypertensive medications. Status: Acute Additional A&P Information Other problems are Elevated liver enzymes Elevated white cell count Mild hyponatremia Repeat LFT, BMP and CBC in the morning. Consider cardiac colorization sometime tomorrow, if the patient is agreeable. For the time being, she may continue on the current medications. 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
[2021-01-09] MEDS: spironolactone 25 mg Tablet PO (10:27)
[2021-01-09] MEDS: aspirin 81 mg EC Tablet PO (10:27)
[2021-01-09] MEDS: metoprolol tartrate 50 mg Tablet PO ×2 (10:27→21:21)
[2021-01-09] MEDS: losartan 50 mg Tablet 25 MG PO (10:28)
[2021-01-09] MEDS: multivitamin therapeutic Tablet 1 TAB PO (10:28)
[2021-01-09] MEDS: potassium chloride ER 20 mEq Tablet 40 MEQ PO (10:29)
[2021-01-09] MEDS: FUROsemide 10 mg/mL SDV 4mL 40 MG IVP (10:29)
[2021-01-09] MEDS: pantoprazole DR 40 mg Tablet PO (10:30)
--- NOTE | 2021-01-09 10:30 | PC.NURSE ---
other delay - other pt care
[2021-01-09] MEDS: diphenhydrAMINE 50 mg Capsule PO (15:40)
[2021-01-09] MEDS: sodium chloride 0.9% 1,000 ML 50 ML IV (15:40)
--- NOTE | 2021-01-09 19:52 | PC.NURSE ---
PT IS RESTING IN BED. PT DENIES PAIN AT THIS TIME. WILL CONTINUE TO MONITOR.
[2021-01-09] MEDS: atorvastatin 40 mg Tablet PO (21:21)
[2021-01-10] VITALS (14 sets, daily range): BP systolic 117–133; BP diastolic 71–92; PULSE 82–120; RESP 15–26; TEMP 35.9–37.2; O2SAT 85–98
[2021-01-10] MEDS: nitroglycerin 1 gm/inch oint Pkt 0.5 INCH TOPICAL ×5 (01:37→23:12)
[2021-01-10] MEDS: enoxaparin 60 mg/0.6 mL Syringe 50 MG SUBCUT ×2 (03:15→14:56)
--- NOTE | 2021-01-10 03:18 | PC.NURSE ---
PT PULLED OUT IV IN RIGHT AC. PT C/O BEING SOB. PT WASN'T WEARING O2. O2 WAS PUT BACK ON PT BRINGING O2 SATS ABOVE 90%. PT DENIES PAIN AT THIS TIME. WILL CONTINUE TO MONITOR.
[2021-01-10 04:12] LABS: Basophils # 0.1 10^3/uL (0.0-0.1); Basophils % 0.3 %; Hematocrit 30.9 % (37.0-47.0); Hemoglobin 10.1 g/dL (11.5-15.3); Lymphocytes # 1.2 10^3/uL (0.8-4.8); Lymphocytes % 7.6 %; Mean Corpuscular HGB Conc 32.7 g/dL (30.0-36.0); Mean Corpuscular Hemoglobin 29.5 pg (28.0-34.0); Mean Corpuscular Volume 90.4 fL (81-99); Mean Platelet Volume 10.4 fL (7.4-10.4); Monocytes # 0.8 10^3/uL (0.2-0.9); Neutrophils # 13.76 10^3/uL (1.8-7.7); Neutrophils % 86.6 %; Nucleated Red Blood Cells % 0 %; Platelet Count 369 10^3/cmm (130-400); Red Blood Count 3.42 10^6/uL (4.1-5.3); Red Cell Distribution Width 15.3 % (12.1-15.1); White Blood Count 15.9 10^3/uL (4.0-10.0)
[2021-01-10 04:39] LABS: Alanine Aminotransferase 20 U/L (0-33); Albumin Level 3.2 g/dL (3.5-5.2); Alkaline Phosphatase 100 IU/L (35-105); Anion Gap 13.2 (5-19); Aspartate Amino Transferase 25 U/L (0-32); Blood Urea Nitrogen 17 mg/dL (8-23); Calcium 8.8 mg/dL (8.5-10.5); Carbon Dioxide 25 mmol/L (22-29); Chloride 102 mmol/L (98-107); Creatinine Clr Calc Pharmacy 74.0515; Globulin 3.1 g/dL (1.3-4.6); Glomerular Filtration Rate 101.6 mL/min (90-130); Glucose 109 mg/dL (65-115); Magnesium 1.8 mg/dL (1.7-2.3); Osmolality Calculated 284 mOsm/kg (285-295); Phosphorus 2.7 mg/dL (2.5-4.5); Potassium 4.2 mmol/L (3.5-5.1); Sodium 136 mmol/L (136-145); Total Bilirubin 0.3 mg/dL (0.15-1.2); Total Protein 6.3 g/dL (6.6-8.7)
--- NOTE | 2021-01-10 04:40 | PC.NURSE ---
PT IS RESTING IN BED. PT DENIES PAIN AT THIS TIME. WILL CONTINUE TO MONITOR.
[2021-01-10 05:40] LABS: Troponin T (5th) Once 1081 ng/L (0-10)
[2021-01-10] MEDS: multivitamin therapeutic Tablet 1 TAB PO (08:45)
[2021-01-10] MEDS: potassium chloride ER 20 mEq Tablet 40 MEQ PO (08:46)
[2021-01-10] MEDS: metoprolol tartrate 50 mg Tablet 75 MG PO ×2 (08:46→20:42)
[2021-01-10] MEDS: spironolactone 25 mg Tablet PO (08:47)
[2021-01-10] MEDS: pantoprazole DR 40 mg Tablet PO (08:47)
[2021-01-10] MEDS: losartan 50 mg Tablet 25 MG PO (08:47)
[2021-01-10] MEDS: aspirin 81 mg EC Tablet PO (08:48)
[2021-01-10] MEDS: FUROsemide 10 mg/mL SDV 4mL 40 MG IVP (09:16)
--- NOTE | 2021-01-10 09:32 | XR_ITS ---
WS: [id number] PORTABLE CHEST HISTORY: hypoxia COMPARISON: None available. Moderate pulmonary hyperexpansion. Thickening and reticulations in the RIGHT upper lobe abutting the minor fissure. Thickening along the minor fissure. Additional interstitial thickening throughout the RIGHT upper and RIGHT lower lobes. Small RIGHT pleural effusion. Cardiac size: Normal. Mediastinum/Aorta: Mild atherosclerosis aorta. No osseous abnormality seen. XR/XR chest 1V portable [id number] IMPRESSION: 1. Pneumonia RIGHT upper lobe with diffuse interstitial thickening from pneumo nitis throughout the RIGHT lung. 2. Small RIGHT pleural effusion.
--- NOTE | 2021-01-10 09:56 | P.PN_ITS ---
Subjective Subjective: Interval history: The patient is feeling okay. She still has significant shortness of breath with activities. She is on 5 L of oxygen by nasal cannula. Denies any chest pain. Vital signs seem to be stable. She has occasional PACs on the monitor. No other significant arrhythmias. Medications: Reviewed: Yes Medication Review Details: Current Medications Albuterol/Ipratropium (Ipratropium-Albuterol 3 Ml Neb) 3 ml INHALATION Q6H PRN PRN Reason: SHORTNESS OF BREATH Aspirin (Aspirin 81 Mg Ec Tablet) 81 mg PO DAILY [facility] Last Admin: 01/10/21 08:48 Dose: 81 mg Documented by: Atorvastatin Calcium (Atorvastatin 40 Mg Tablet) 40 mg PO BEDTIME [facility] Last Admin: 01/09/21 21:21 Dose: 40 mg Documented by: Bisacodyl (Bisacodyl 5 Mg Tablet) 10 mg PO DAILY PRN PRN Reason: CONSTIPATION Enoxaparin Sodium (Enoxaparin 60 Mg/0.6 Ml Syringe) 50 mg SUBCUT Q12H [facility] Last Admin: 01/10/21 03:15 Dose: 50 mg Documented by: Furosemide (Furosemide 10 Mg/Ml Sdv 4ml) 40 mg IVP Q24H [facility] Last Admin: 01/10/21 09:16 Dose: 40 mg Documented by: Losartan Potassium (Losartan 50 Mg Tablet) 25 mg PO DAILY [facility] Last Admin: 01/10/21 08:47 Dose: 25 mg Documented by: Metoprolol Tartrate (Metoprolol Tartrate 50 Mg Tablet) 75 mg PO BID@0900,2100 [facility] Last Admin: 01/10/21 08:46 Dose: 75 mg Documented by: Morphine Sulfate (Morphine 4 Mg/Ml Sdv 1 Ml) 2 mg IVP Q4H PRN PRN Reason: SEVERE PAIN Multivitamins Therapeutic (Multivitamin Therapeutic Tablet) 1 tab PO DAILY@08 [facility] Last Admin: 01/10/21 08:45 Dose: 1 tab Documented by: Nitroglycerin (Nitroglycerin 1 Gm/Inch Oint Pkt) 0.5 inch TOPICAL Q6H [facility] Last Admin: 01/10/21 05:17 Dose: 0.5 inch Documented by: Ondansetron HCl (Ondansetron 2 Mg/Ml Sdv 2 Ml) 4 mg IVP Q8H PRN PRN Reason: vomiting, or N/V if npo Pantoprazole Sodium (Pantoprazole Dr 40 Mg Tablet) 40 mg PO DAILY [facility] Last Admin: 01/10/21 08:47 Dose: 40 mg Documented by: Potassium Chloride (Potassium Chloride Er 20 Meq Tablet) 40 meq PO DAILY [facility] Last Admin: 01/10/21 08:46 Dose: 40 meq Documented by: Spironolactone (Spironolactone 25 Mg Tablet) 25 mg PO DAILY [facility] Last Admin: 01/10/21 08:47 Dose: 25 mg Documented by: Vitals/I&O/Wt Last Vital Signs Temp 98.9 F 01/10/21 08:00 Pulse 114 H 01/10/21 08:00 Resp 22 H 01/10/21 08:00 BP 130/92 01/10/21 08:00 Pulse Ox 94 01/10/21 08:00 01/09/21 01/10/21 01/10/21 22:59 06:59 14:59 Intake Total 240 / 960 100 / 1060 910 / 910 Balance 240 / 960 100 / 1060 910 / 910 Physical Exam Narrative: EXAM NARRATIVE: GENERAL: The patient is alert and oriented times three. Not in any acute distress. HEENT: No significant pallor, icterus or lymphadenopathy. The pupils are reactant to light. Oral cavity: There are no mucous membrane lesions. Funduscopic examination: The fundus is not visualized NECK: Trachea appears to be central. No masses noted. No JVD or thyromegaly appreciated. No carotid bruit. RESPIRATORY: Chest is symmetrical. No intercostals muscle retraction or any accessory muscle activation. There is no chest wall tenderness. Breath sounds are heard bilaterally. No rales or rhonchi heard. No evidence of any consolidation. Few fine rales in the base and some scattered coarse crackles bilaterally. BREASTS: Deferred. HEART: The heart sounds are normal. No S3 or S4. Short systolic murmur in the mitral area. No diastolic murmurs. ABDOMEN: No vessel pulsations or distention. No tenderness. No organomegaly appreciated. No abdominal bruit. Bowel sounds are normally heard. : Deferred. RECTAL: Deferred. LYMPHATIC: No lymphadenopathy noted in the neck or groin. EXTREMITIES: No edema or cyanosis. No clubbing. Peripheral pulses are palpable but weak bilaterally. No cyanosis. MUSCULOSKELETAL: No acute joint deformities or swelling. SKIN: There are no significant scars or skin rash noted. NEUROPSYCHIATRIC: No focal motor deficits. Data : 01/10/21 02:57 01/10/21 02:57 Other Labs: Laboratory Last Values WBC 15.9 10^3/uL (4.0-10.0) H 01/10/21 02:57 RBC 3.42 10^6/uL (4.1-5.3) L 01/10/21 02:57 Hgb 10.1 g/dL (11.5-15.3) L 01/10/21 02:57 Hct 30.9 % (37.0-47.0) L 01/10/21 02:57 MCV 90.4 fL (81-99) 01/10/21 02:57 MCH 29.5 pg (28.0-34.0) 01/10/21 02:57 MCHC 32.7 g/dL (30.0-36.0) 01/10/21 02:57 RDW 15.3 % (12.1-15.1) H 01/10/21 02:57 Plt Count 369 10^3/cmm (130-400) 01/10/21 02:57 MPV 10.4 fL (7.4-10.4) 01/10/21 02:57 Neut % (Auto) 86.6 % 01/10/21 02:57 Lymph % (Auto) 7.6 % 01/10/21 02:57 [place] % (Auto) 5.0 % 01/10/21 02:57 Eos % (Auto) 0.0 % 01/10/21 02:57 Baso % (Auto) 0.3 % 01/10/21 02:57 Neut # (Auto) 13.76 10^3/uL (1.8-7.7) H 01/10/21 02:57 Lymph # (Auto) 1.2 10^3/uL (0.8-4.8) 01/10/21 02:57 [place] # (Auto) 0.8 10^3/uL (0.2-0.9) 01/10/21 02:57 Eos # (Auto) 0.0 10^3/uL (0.0-0.8) 01/10/21 02:57 Baso # (Auto) 0.1 10^3/uL (0.0-0.1) 01/10/21 02:57 Nucleated RBC % (auto) 0 % 01/10/21 02:57 Nucleated RBCs # 0.0 /100WBC 01/10/21 02:57 PT 14.10 SECONDS (12.1-14.9) 01/08/21 12:33 INR 1.06 (0.8-1.2) 01/08/21 12:33 APTT 36.6 SECONDS (23.9-36.7) 01/08/21 12:33 Sodium 136 mmol/L (136-145) 01/10/21 02:57 Potassium 4.2 mmol/L (3.5-5.1) 01/10/21 02:57 Chloride 102 mmol/L (98-107) 01/10/21 02:57 Carbon Dioxide 25 mmol/L (22-29) 01/10/21 02:57 Anion Gap 13.2 (5-19) 01/10/21 02:57 BUN 17 mg/dL (8-23) 01/10/21 02:57 Creatinine 0.6 mg/dL (0.5-0.9) 01/10/21 02:57 GFR Calculation 101.6 mL/min (90-130) 01/10/21 02:57 Glucose 109 mg/dL (65-115) 01/10/21 02:57 Estimat Average Glucose 100 01/09/21 02:55 Hemoglobin A1c 5.1 % (4.0-6.0) 01/09/21 02:55 Calculated Osmolality 284 mOsm/kg (285-295) L 01/10/21 02:57 Calcium 8.8 mg/dL (8.5-10.5) 01/10/21 02:57 Phosphorus 2.7 mg/dL (2.5-4.5) 01/10/21 02:57 Magnesium 1.8 mg/dL (1.7-2.3) 01/10/21 02:57 Total Bilirubin 0.3 mg/dL (0.15-1.2) 01/10/21 02:57 AST 25 U/L (0-32) 01/10/21 02:57 ALT 20 U/L (0-33) 01/10/21 02:57 Alkaline Phosphatase 100 IU/L (35-105) 01/10/21 02:57 Troponin T Gen 5 ng/L 1081 ng/L (0-10) H* 01/10/21 02:57 NT-Pro-B Natriuret Pep 5372 pg/mL (0-125) H 01/08/21 12:33 Total Protein 6.3 g/dL (6.6-8.7) L 01/10/21 02:57 Albumin 3.2 g/dL (3.5-5.2) L 01/10/21 02:57 Globulin 3.1 g/dL (1.3-4.6) 01/10/21 02:57 Triglycerides 157 mg/dL (0-150) H 01/09/21 02:55 Cholesterol 158 mg/dL (0-200) 01/09/21 02:55 LDL Cholesterol, Calc 84 mg/dL (50-129) 01/09/21 02:55 HDL Cholesterol 43 mg/dL (60-100) L 01/09/21 02:55 LDL/HDL Ratio 1.95 RATIO (0.00-3.22) 01/09/21 02:55 Cholesterol/HDL Ratio 3.67 mg/dL (0.0-4.40) 01/09/21 02:55 Procalcitonin 0.07 ng/mL (0-0.5) 01/09/21 02:55 TSH 0.90 uIU/mL (0.27-4.20) 01/08/21 12:33 Urine Color Yellow (Yellow) 01/08/21 14:54 Urine Appearance Clear (CLEAR) 01/08/21 14:54 Urine pH 6 (5-7) 01/08/21 14:54 Ur Specific [place] 1.010 (1.005-1.030) 01/08/21 14:54 Urine Protein Neg (Negative) 01/08/21 14:54 Urine Glucose (UA) Norm (Normal) 01/08/21 14:54 Urine Ketones Negative (Negative) 01/08/21 14:54 Urine Blood Neg (Negative) 01/08/21 14:54 Urine Nitrate Negative (Negative) 01/08/21 14:54 Urine Bilirubin Neg (Negative) 01/08/21 14:54 Urine Urobilinogen Norm mg/dL (Negative) 01/08/21 14:54 Ur Leukocyte Esterase Negative (Negative) 01/08/21 14:54 A&P Assessment and plan (1) Acute on chronic systolic heart failure: Most likely this patient had non-ST elevation myocardial infarction complicated with congestive heart failure. Currently she seems to be fairly stable. Her heart failure seems to be getting compensated. She has no recurre nce of chest pain. May be appropriate to continue on the Lovenox and the Plavix at this point. She requires a cardiac catheterization, to further evaluate the coronary status and decide on further management. The patient could not get a hold of any family to talk to. But she is wanting to go ahead with the procedure. However because of the elevated white cell count and the hypoxia, we need to make sure that she has no infective etiology going on. This was discussed with the patient which he understood well. I discussed with the Dr. Del Valle about this. Status: Acute (2) Elevated troponin: The troponin T is slowly trending down. But it is still significantly elevated. We will continue on the Lovenox and Plavix. Status: Acute (3) COPD (chronic obstructive pulmonary disease): Patient has a history of heavy smoking abuse. Most likely she has underlying COPD. We need to rule out pneumonia. Status: Acute Qualifiers: COPD type: unspecified COPD Qualified Code(s): J44.9 - Chronic obstructive pulmonary disease, unspecified (4) Tobacco abuse: Smokes 2 pack a day for the last more than 30 years. She also smokes m arijuana intermittently. No IV drug abuse or any other substance abuse. Advised strongly to quit smoking. She seems understand implications. Status: Acute (5) Elevated blood pressure reading: Her blood pressure is still elevated. We will continue to optimize the medications. Status: Acute Additional A&P Information Other problems are Elevated liver enzymes Elevated white cell count Mild hyponatremia A chest x-ray is ordered. After reviewing the test results and also based on the patient's the clinical progress, further management decisions will be made. We may hold off on the cardiac catheterization for the time being. She was given 40 mg of IV Lasix. We will be watching the clinical response. ADDENDUM The chest x-ray revealed right upper lobe pneumonia. For this reason, I may hold off on the cardiac catheterization today. Dr. Del Valle will be managing the pneumonia. We will wait till infection is appropriately treated/clinically stabilized, before proceeding with the cardiac catheterization. 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
--- NOTE | 2021-01-10 10:11 | PC.NURSE ---
Rounded with Dr. Restrepo. Angiogram will be on hold pending investigation of infection. Nurse will continue to monitor.
[2021-01-10] MEDS: cefTRIAXone 1,000 MG in sodium chloride 0.9% (plus) 50 ML 100 MG IV (11:31)
--- NOTE | 2021-01-10 11:53 | P.PN_ITS ---
Subjective Subjective: Interval history: She denies chest pain or pressure. With oxygen on denies shortness of breath or trouble breathing. Has not had any abdominal discomfort. No dysuria. Vitals/I&O/Wt Last Vital Signs Temp 98.9 F 01/10/21 08:00 Pulse 90 01/10/21 11:49 Resp 22 H 01/10/21 11:49 BP 130/92 01/10/21 08:00 Pulse Ox 94 01/10/21 11:50 01/09/21 01/10/21 01/10/21 22:59 06:59 14:59 Intake Total 240 / 960 100 / 1060 910 / 910 Balance 240 / 960 100 / 1060 910 / 910 Physical Exam Const: COMMON NORMALS: no acute distress and patient oriented x3 HENMT: COMMON NORMALS: oropharynx normal Neck/C-Spine: COMMON NORMALS: no JVD Resp: COMMON NORMALS: normal respiratory effort AUSCULTATION: crackles (Faint in right mid chest) Cardio: COMMON NORMALS: no JVD, regular rhythm, S1 normal heart sound present, S2 normal heart sound present and No murmurs present (Cardio) RHYTHM: regular rhythm HEART SOUNDS: S1 normal heart sound present and S2 normal heart sound present GI: COMMON NORMALS: Normal to inspection, nondistended, normoactive bowel sounds present, Soft to palpation and non-tender PALPATION: Yes Soft to palpation Extremity: COMMON NORMALS: no joint enlargement and no pedal edema Neuro: COMMON NORMALS: patient oriented x3 and moves all extremities Skin: COMMON NORMALS: no rashes or lesions noted GENERAL SKIN EXAM: no rashes or lesions noted Data : 01/10/21 02:57 01/10/21 02:57 Micro: Microbiology 01/10/21 11:00 Blood Culture - Preliminary Blood SPECIMEN COLLECTED 01/10/21 11:01 Blood Culture - Preliminary Blood SPECIMEN COLLECTED A&P Assessment and plan (1) Community acquired pneumonia: Right upper lobe, possible sepsis with leukocytosis, 15.9, sinus tachyc ardia 90-110 Pneumonia of right upper lobe noted on chest x-ray also with diffuse interstitial thickening of entire right lung. Blood culture, sputum culture requested. Lactic acid requested. Started on ceftriaxone, doxycycline. Continue oxygenation support. Was requiring up as much as 5 L of oxygen by nasal cannula. Normally not requiring supplemental oxygen. Wean off as tolerating. Status: Acute (2) Non-ST elevated myocardial infarction (non-STEMI): Appreciate additional assessment of NSTEMI by cardiology. For now additional assessment held due to worsening hypoxia, possible sepsis. With tentative plan for additional assessment and management once the above is improving. Status: Acute (3) Acute heart failure: Acute systolic heart failure. EF 35-40% Continue IV diuretic. Monitor JOEL. Renal function. DC IV fluid. Status: Acute (4) COPD (chronic obstructive pulmonary disease): Not in exacerbation does not have; rhonchi, cough, and overall does not appear to have COPD exacerbation. Does have pneumonia as above. Status: Acute Qualifiers: COPD type: unspecified COPD Qualified Code(s): J44.9 - Chronic obstructive pulmonary disease, unspecified (5) Tobacco abuse: Encourage cessation. Status: Acute Attestations Medical Necessity Statement*: Continue admission for assessment management of pneumonia, possible sepsis, NSTEMI. 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
[2021-01-10] MEDS: doxycycline 100 MG in sodium chloride 0.9% (plus) 100 ML IV ×2 (12:49→23:07)
--- NOTE | 2021-01-10 13:52 | PC.NURSE ---
Pt has been educated several times today about the importance of wearing her oxygen while ambulating to the restroom. Pt refuses to be compliant and states, I don't get why I got to wear it all the time . Even after explaining the importance of wearing her oxygen and being educated on her oxygen level dropping below 85%. Pt placed back on oxygen when back to bed, oxygen levels begin to recover to mid 90's. Will continue to monitor pt.
[2021-01-10] MEDS: atorvastatin 40 mg Tablet PO (20:43)
[2021-01-11] VITALS (11 sets, daily range): BP systolic 106–141; BP diastolic 68–88; PULSE 78–103; RESP 16–22; TEMP 36.3–36.9; O2SAT 95–98
[2021-01-11] MEDS: enoxaparin 60 mg/0.6 mL Syringe 50 MG SUBCUT ×2 (02:07→14:31)
[2021-01-11] MEDS: nitroglycerin 1 gm/inch oint Pkt 0.5 INCH TOPICAL ×3 (05:19→23:48)
[2021-01-11 05:28] LABS: Basophils % 0.2 %; Eosinophils % 0.1 %; Hematocrit 29.9 % (37.0-47.0); Hemoglobin 9.6 g/dL (11.5-15.3); Lymphocytes # 1.4 10^3/uL (0.8-4.8); Lymphocytes % 12.2 %; Mean Corpuscular HGB Conc 32.1 g/dL (30.0-36.0); Mean Corpuscular Hemoglobin 29.2 pg (28.0-34.0); Mean Corpuscular Volume 90.9 fL (81-99); Mean Platelet Volume 10.6 fL (7.4-10.4); Monocytes # 0.8 10^3/uL (0.2-0.9); Monocytes % 6.9 %; Neutrophils # 8.87 10^3/uL (1.8-7.7); Neutrophils % 80.3 %; Nucleated Red Blood Cells % 0 %; Platelet Count 329 10^3/cmm (130-400); Red Blood Count 3.29 10^6/uL (4.1-5.3); Red Cell Distribution Width 15.1 % (12.1-15.1)
[2021-01-11 05:47] LABS: Alanine Aminotransferase 23 U/L (0-33); Albumin Level 3.2 g/dL (3.5-5.2); Alkaline Phosphatase 87 IU/L (35-105); Aspartate Amino Transferase 25 U/L (0-32); Blood Urea Nitrogen 22 mg/dL (8-23); Calcium 8.9 mg/dL (8.5-10.5); Carbon Dioxide 23 mmol/L (22-29); Chloride 101 mmol/L (98-107); Globulin 3.2 g/dL (1.3-4.6); Glomerular Filtration Rate 85.1 mL/min (90-130); Glucose 106 mg/dL (65-115); Magnesium 1.8 mg/dL (1.7-2.3); Osmolality Calculated 284 mOsm/kg (285-295); Phosphorus 3.1 mg/dL (2.5-4.5); Sodium 135 mmol/L (136-145); Total Bilirubin 0.4 mg/dL (0.15-1.2); Total Protein 6.4 g/dL (6.6-8.7)
[2021-01-11] MEDS: FUROsemide 10 mg/mL SDV 4mL 40 MG IVP (08:21)
[2021-01-11] MEDS: spironolactone 25 mg Tablet PO (08:23)
[2021-01-11] MEDS: aspirin 81 mg EC Tablet PO (08:23)
[2021-01-11] MEDS: potassium chloride ER 20 mEq Tablet 40 MEQ PO (08:23)
[2021-01-11] MEDS: losartan 50 mg Tablet 25 MG PO (08:23)
[2021-01-11] MEDS: metoprolol tartrate 50 mg Tablet 75 MG PO ×2 (08:23→20:32)
[2021-01-11] MEDS: multivitamin therapeutic Tablet 1 TAB PO (08:24)
[2021-01-11] MEDS: pantoprazole DR 40 mg Tablet PO (08:24)
--- NOTE | 2021-01-11 09:56 | PM.PN ---
Subjective Subjective: Interval history: The patient is feeling okay. She has not had any fever or chills. No cough. Her breathing is better. She is currently on 2 L of oxygen by nasal cannula. Her white cell count came down into the low 11K today. No new symptoms. Medications: Reviewed: Yes Medication Review Details: Current Medications Albuterol/Ipratropium (Ipratropium-Albuterol 3 Ml Neb) 3 ml INHALATION Q6H PRN PRN Reason: SHORTNESS OF BREATH Aspirin (Aspirin 81 Mg Ec Tablet) 81 mg PO DAILY [facility] Last Admin: 01/11/21 08:23 Dose: 81 mg Documented by: Atorvastatin Calcium (Atorvastatin 40 Mg Tablet) 40 mg PO BEDTIME [facility] Last Admin: 01/10/21 20:43 Dose: 40 mg Documented by: Bisacodyl (Bisacodyl 5 Mg Tablet) 10 mg PO DAILY PRN PRN Reason: CONSTIPATION Enoxaparin Sodium (Enoxaparin 60 Mg/0.6 Ml Syringe) 50 mg SUBCUT Q12H [facility] Last Admin: 01/11/21 02:07 Dose: 50 mg Documented by: Furosemide (Furosemide 10 Mg/Ml Sdv 4ml) 40 mg IVP Q24H [facility] Last Admin: 01/11/21 08:21 Dose: 40 mg Documented by: Ceftriaxone Sodium 1,000 mg/ (Sodium Chloride) 50 mls @ 100 mls/hr IV Q24H [facility]; Protocol Last Titration: 01/10/21 12:44 Dose: Infused Documented by: Doxycycline Hyclate 100 mg/ (Sodium Chloride) 100 mls @ 100 mls/hr IV Q12H [facility]; Protocol Last Titration: 01/11/21 00:14 Dose: Infused Documented by: Losartan Potassium (Losartan 50 Mg Tablet) 25 mg PO DAILY [facility] Last Admin: 01/11/21 08:23 Dose: 25 mg Documented by: Metoprolol Tartrate (Metoprolol Tartrate 50 Mg Tablet) 75 mg PO BID@0900,2100 [facility] Last Admin: 01/11/21 08:23 Dose: 75 mg Documented by: Morphine Sulfate (Morphine 4 Mg/Ml Sdv 1 Ml) 2 mg IVP Q4H PRN PRN Reason: SEVERE PAIN Multivitamins Therapeutic (Multivitamin Therapeutic Tablet) 1 tab PO DAILY@08 [facility] Last Admin: 01/11/21 08:24 Dose: 1 tab Documented by: Nitroglycerin (Nitroglycerin 1 Gm/Inch Oint Pkt) 0.5 inch TOPICAL Q6H [facility] Last Admin: 01/11/21 05:19 Dose: 0.5 inch Documented by: Ondansetron HCl (Ondansetron 2 Mg/Ml Sdv 2 Ml) 4 mg IVP Q8H PRN PRN Reason: vomiting, or N/V if npo Pantoprazole Sodium (Pantoprazole Dr 40 Mg Tablet) 40 mg PO DAILY [facility] Last Admin: 01/11/21 08:24 Dose: 40 mg Documented by: Potassium Chloride (Potassium Chloride Er 20 Meq Tablet) 40 meq PO DAILY [facility] Last Admin: 01/11/21 08:23 Dose: 40 meq Documented by: Spironolactone (Spironolactone 25 Mg Tablet) 25 mg PO DAILY [facility] Last Admin: 01/11/21 08:23 Dose: 25 mg Documented by: Vitals/I&O/Wt Last Vital Signs Temp 98.2 F 01/11/21 07:27 Pulse 102 H 01/11/21 08:58 Resp 17 01/11/21 08:58 BP 106/72 01/11/21 08:23 Pulse Ox 98 01/11/21 08:58 01/10/21 01/11/21 01/11/21 22:59 06:59 14:59 Intake Total 338 / 1398 337 / 1735 360 / 360 Balance 338 / 1398 337 / 1735 360 / 360 Physical Exam Narrative: EXAM NARRATIVE: GENERAL: The patient is alert and oriented times three. Not in any acute distress. HEENT: Minimal pallor,no icterus or lymphadenopathy. The pupils are reactant to light. Oral cavity: There are no mucous membrane lesions. NECK: Trachea appears to be central. No masses noted. No JVD or thyromegaly appreciated. No carotid bruit. RESPIRATORY: Chest is symmetrical. No intercostals muscle retraction or any accessory muscle activation. There is no chest wall tenderness. Breath sounds are heard bilaterally. No rales or rhonchi heard. No evidence of any consolidation. Few scattered crackles bilaterally BREASTS: Deferred. HEART: The heart sounds are normal. No S3 or S4. Short systolic murmur in the mitral area. No diastolic murmurs. ABDOMEN: No vessel pulsations or distention. No tenderness. No organomegaly appreciated. No abdominal bruit. Bowel sounds are normally heard. : Deferred. RECTAL: Deferred. LYMPHATIC: No lymphadenopathy noted in the neck or groin. EXTREMITIES: No edema or cyanosis. No clubbing. Peripheral pulses are palpable but weak bilaterally. No cyanosis. MUSCULOSKELETAL: No acute joint deformities or swelling. SKIN: There are no significant scars or skin rash noted. NEUROPSYCHIATRIC: No focal motor deficits. Data : 01/11/21 04:25 01/11/21 04:25 Other Labs: Laboratory Last Values WBC 11.0 10^3/uL (4.0-10.0) H 01/11/21 04:25 RBC 3.29 10^6/uL (4.1-5.3) L 01/11/21 04:25 Hgb 9.6 g/dL (11.5-15.3) L 01/11/21 04:25 Hct 29.9 % (37.0-47.0) L 01/11/21 04:25 MCV 90.9 fL (81-99) 01/11/21 04:25 MCH 29.2 pg (28.0-34.0) 01/11/21 04:25 MCHC 32.1 g/dL (30.0-36.0) 01/11/21 04:25 RDW 15.1 % (12.1-15.1) 01/11/21 04:25 Plt Count 329 10^3/cmm (130-400) 01/11/21 04:25 MPV 10.6 fL (7.4-10.4) H 01/11/21 04:25 Neut % (Auto) 80.3 % 01/11/21 04:25 Lymph % (Auto) 12.2 % 01/11/21 04:25 Todd % (Auto) 6.9 % 01/11/21 04:25 Eos % (Auto) 0.1 % 01/11/21 04:25 Baso % (Auto) 0.2 % 01/11/21 04:25 Neut # (Auto) 8.87 10^3/uL (1.8-7.7) H 01/11/21 04:25 Lymph # (Auto) 1.4 10^3/uL (0.8-4.8) 01/11/21 04:25 Todd # (Auto) 0.8 10^3/uL (0.2-0.9) 01/11/21 04:25 Eos # (Auto) 0.0 10^3/uL (0.0-0.8) 01/11/21 04:25 Baso # (Auto) 0.0 10^3/uL (0.0-0.1) 01/11/21 04:25 Nucleated RBC % (auto) 0 % 01/11/21 04:25 Nucleated RBCs # 0.0 /100WBC 01/11/21 04:25 PT 14.10 SECONDS (12.1-14.9) 01/08/21 12:33 INR 1.06 (0.8-1.2) 01/08/21 12:33 APTT 36.6 SECONDS (23.9-36.7) 01/08/21 12:33 Sodium 135 mmol/L (136-145) L 01/11/21 04:25 Potassium 4.0 mmol/L (3.5-5.1) 01/11/21 04:25 Chloride 101 mmol/L (98-107) 01/11/21 04:25 Carbon Dioxide 23 mmol/L (22-29) 01/11/21 04:25 Anion Gap 15.0 (5-19) 01/11/21 04:25 BUN 22 mg/dL (8-23) 01/11/21 04:25 Creatinine 0.7 mg/dL (0.5-0.9) 01/11/21 04:25 GFR Calculation 85.1 mL/min (90-130) L 01/11/21 04:25 Glucose 106 mg/dL (65-115) 01/11/21 04:25 Estimat Average Glucose 100 01/09/21 02:55 Hemoglobin A1c 5.1 % (4.0-6.0) 01/09/21 02:55 Calculated Osmolality 284 mOsm/kg (285-295) L 01/11/21 04:25 Lactate 1.0 mmol/L (0.5-2.2) 01/10/21 10:00 Calcium 8.9 mg/dL (8.5-10.5) 01/11/21 04:25 Phosphorus 3.1 mg/dL (2.5-4.5) 01/11/21 04:25 Magnesium 1.8 mg/dL (1.7-2.3) 01/11/21 04:25 Total Bilirubin 0.4 mg/dL (0.15-1.2) 01/11/21 04:25 AST 25 U/L (0-32) 01/11/21 04:25 ALT 23 U/L (0-33) 01/11/21 04:25 Alkaline Phosphatase 87 IU/L (35-105) 01/11/21 04:25 Troponin T Gen 5 ng/L 1081 ng/L (0-10) H* 01/10/21 02:57 NT-Pro-B Natriuret Pep 5372 pg/mL (0-125) H 01/08/21 12:33 Total Protein 6.4 g/dL (6.6-8.7) L 01/11/21 04:25 Albumin 3.2 g/dL (3.5-5.2) L 01/11/21 04:25 Globulin 3.2 g/dL (1.3-4.6) 01/11/21 04:25 Triglycerides 157 mg/dL (0-150) H 01/09/21 02:55 Cholesterol 158 mg/dL (0-200) 01/09/21 02:55 LDL Cholesterol, Calc 84 mg/dL (50-129) 01/09/21 02:55 HDL Cholesterol 43 mg/dL (60-100) L 01/09/21 02:55 LDL/HDL Ratio 1.95 RATIO (0.00-3.22) 01/09/21 02:55 Cholesterol/HDL Ratio 3.67 mg/dL (0.0-4.40) 01/09/21 02:55 Procalcitonin 0.07 ng/mL (0-0.5) 01/09/21 02:55 TSH 0.90 uIU/mL (0.27-4.20) 01/08/21 12:33 Urine Color Yellow (Yellow) 01/08/21 14:54 Urine Appearance Clear (CLEAR) 01/08/21 14:54 Urine pH 6 (5-7) 01/08/21 14:54 Ur Specific [place] 1.010 (1.005-1.030) 01/08/21 14:54 Urine Protein Neg (Negative) 01/08/21 14:54 Urine Glucose (UA) Norm (Normal) 01/08/21 14:54 Urine Ketones Negative (Negative) 01/08/21 14:54 Urine Blood Neg (Negative) 01/08/21 14:54 Urine Nitrate Negative (Negative) 01/08/21 14:54 Urine Bilirubin Neg (Negative) 01/08/21 14:54 Urine Urobilinogen Norm mg/dL (Negative) 01/08/21 14:54 Ur Leukocyte Esterase Negative (Negative) 01/08/21 14:54 Micro: Microbiology 01/10/21 11:00 Blood Culture - Preliminary Blood SPECIMEN COLLECTED 01/10/21 11:01 Blood Culture - Preliminary Blood SPECIMEN COLLECTED A&P Assessment and plan (1) Acute on chronic systolic heart failure: Most likely this patient had non-ST elevation myocardial infarction complicated with congestive heart failure. Currently she seems to be fairly stable. Her heart failure seems to be getting compensated. She has no recurrence of chest pain. May be appropriate to continue on the Lovenox and the Plavix at this point. She requires a cardiac catheterization, to further evaluate the coronary status and decide on further management. I had a discussion with her sister yesterday. According to sister, the patient has intermittent episodes of confusion. But she makes her own decisions. She has a strong family history for premature atherosclerotic heart disease. The patient and the family is wanting to go ahead with the cardiac catheterization procedure and further management. The risk of bleeding, hematoma, vascular injury, myocardial infarction, CVA, renal failure and other concomitant complications were explained in detail. Patient and the family understand this well Status: Acute (2) Elevated troponin: Patient is to continue on the current medications. Based on the results of the cardiac catheterization, further management decisions will be made. Status: Acute (3) COPD (chronic obstructive pulmonary disease): Patient has a history of heavy smoking abuse. Most likely she has underlying COPD. We need to rule out pneumonia. Status: Acute Qualifiers: COPD type: unspecified COPD Qualified Code(s): J44.9 - Chronic obstructive pulmonary disease, unspecified (4) Tobacco abuse: Smokes 2 pack a day for the last more than 30 years. She also smokes marijuana intermittently. No IV drug abuse or any other substance abuse. Advised strongly to quit smoking. She seems understand implications. Status: Acute (5) Elevated blood pressure reading: Blood pressure is in the normal range. May continue on the current medications. Status: Acute Additional A&P Information Other problems are Elevated liver enzymes Elevated white cell count, currently returned back to the baseline Mild hyponatremia, improving Anemia, multifactorial, fairly stable We will do a repeat CBC, chest x-ray and BMP in the morning. Based on the results, further recommendations will be made Attestations Medical Necessity Statement*: Patient requires continued hospital stay for close monitoring and further management Coding Level of Care Code Acute [employer] Hel[employer] for [employer] Diagnoses Acute on chronic systolic heart failure I50.23 Elevated troponin R77.8 COPD (chronic obstructive pulmonary disease) J44.9 COPD type: unspecified COPD Tobacco abuse Z72.0 Elevated blood pressure reading R03.0
[2021-01-11] MEDS: cefTRIAXone 1,000 MG in sodium chloride 0.9% (plus) 50 ML 100 MG IV (10:37)
[2021-01-11] MEDS: doxycycline 100 MG in sodium chloride 0.9% (plus) 100 ML IV ×2 (11:08→23:47)
--- NOTE | 2021-01-11 17:25 | PM.PN ---
Subjective Subjective: Interval history: She states today she is doing all right. Denies trouble breathing. Denies chest pain. Vitals/I&O/Wt Last Vital Signs Temp 98.4 F 01/11/21 16:00 Pulse 86 01/11/21 16:00 Resp 21 H 01/11/21 16:00 BP 116/74 01/11/21 16:00 Pulse Ox 96 01/11/21 16:00 01/11/21 01/11/21 01/11/21 06:59 14:59 22:59 Intake Total 337 / 1735 870 / 870 Balance 337 / 1735 870 / 870 Physical Exam Const: COMMON NORMALS: no acute distress and patient oriented x3 HENMT: COMMON NORMALS: oropharynx normal Neck/C-Spine: COMMON NORMALS: no JVD Resp: COMMON NORMALS: normal respiratory effort and clear to auscultation bilaterally AUSCULTATION: clear to auscultation bilaterally Cardio: COMMON NORMALS: no JVD, regular rhythm, S1 normal heart sound present, S2 normal heart sound present and No murmurs present (Cardio) RHYTHM: regular rhythm HEART SOUNDS: S1 normal heart sound present and S2 normal heart sound present GI: COMMON NORMALS: Normal to inspection, nondistended, normoactive bowel sounds present, Soft to palpation and non-tender PALPATION: Yes Soft to palpation Extremity: COMMON NORMALS: no joint enlargement and no pedal edema Neuro: COMMON NORMALS: patient oriented x3 and moves all extremities Skin: COMMON NORMALS: no rashes or lesions noted GENERAL SKIN EXAM: no rashes or lesions noted Data : 01/11/21 04:25 01/11/21 04:25 Micro: Microbiology 01/10/21 11:01 Blood Culture - Preliminary Blood NEGATIVE TO DATE 01/10/21 11:00 Blood Culture - Preliminary Blood NEGATIVE TO DATE A&P Assessment and plan (1) Community acquired pneumonia: Improving pneumonia. Oxygenation improving, leukocytosis decreased down to 11,000. Subjectively she is feeling better. If continues to improve, she is wanting to proceed with additional assessment of management by cardiology possibly tomorrow. Does not want to wait longer. Ceftriaxone, doxycycline. Continue oxygenation support. Wean off as tolerating. Status: Acute (2) Non-ST elevated myocardial infarction (non-STEMI): Appreciate additional assessment of NSTEMI by cardiology. For now additional assessment held due to worsening hypoxia, possible sepsis. With tentative plan for additional assessment and management once the above is improving. Status: Acute (3) Acute heart failure: Acute systolic heart failure. EF 35-40% Continue IV diuretic. Monitor JOEL, although it appears it has been difficult to maintain a log of output. Status: Acute (4) COPD (chronic obstructive pulmonary disease): Not in exacerbation does not have; rhonchi, cough, and overall does not appear to have COPD exacerbation. Does have pneumonia as above. Status: Acute Qualifiers: COPD type: unspecified COPD Qualified Code(s): J44.9 - Chronic obstructive pulmonary disease, unspecified (5) Tobacco abuse: Encourage cessation. Status: Acute Attestations Medical Necessity Statement*: Continue admission for treatment of pneumonia and hypoxia pending additional assessment and treatment of non-STEMI. Coding Level of Care Code Acute [employer] Assistant for [facility] Fwd Diagnoses Community acquired pneumonia J18.9 Non-ST elevated myocardial infarction (non-STEMI) I21.4 Acute heart failure I50.9 COPD (chronic obstructive pulmonary disease) J44.9 COPD type: unspecified COPD Tobacco abuse Z72.0
--- NOTE | 2021-01-11 19:34 | PC.NURSE ---
PT IS RESTING IN BED. PT DENIES PAIN AT THIS TIME. WILL CONTINUE TO MONITOR.
[2021-01-11] MEDS: atorvastatin 40 mg Tablet PO (20:32)
[2021-01-12] VITALS (12 sets, daily range): BP systolic 113–134; BP diastolic 66–94; PULSE 74–95; RESP 15–22; TEMP 36.3–36.7; O2SAT 93–98
[2021-01-12] MEDS: enoxaparin 60 mg/0.6 mL Syringe 50 MG SUBCUT ×2 (03:02→15:09)
[2021-01-12 05:16] LABS: Basophils % 0.3 %; Eosinophils # 0.1 10^3/uL (0.0-0.8); Eosinophils % 0.7 %; Hematocrit 30.8 % (37.0-47.0); Hemoglobin 9.7 g/dL (11.5-15.3); Lymphocytes # 1.6 10^3/uL (0.8-4.8); Lymphocytes % 15.3 %; Mean Corpuscular HGB Conc 31.5 g/dL (30.0-36.0); Mean Corpuscular Volume 92.2 fL (81-99); Mean Platelet Volume 10.2 fL (7.4-10.4); Monocytes # 0.8 10^3/uL (0.2-0.9); Monocytes % 7.8 %; Neutrophils # 7.68 10^3/uL (1.8-7.7); Neutrophils % 75.4 %; Nucleated Red Blood Cells % 0 %; Platelet Count 332 10^3/cmm (130-400); Red Blood Count 3.34 10^6/uL (4.1-5.3); White Blood Count 10.2 10^3/uL (4.0-10.0)
[2021-01-12 05:34] LABS: Anion Gap 13.9 (5-19); Blood Urea Nitrogen 28 mg/dL (8-23); Calcium 8.8 mg/dL (8.5-10.5); Carbon Dioxide 27 mmol/L (22-29); Chloride 100 mmol/L (98-107); Creatinine Clr Calc Pharmacy 74.0515; Glomerular Filtration Rate 101.6 mL/min (90-130); Glucose 102 mg/dL (65-115); Osmolality Calculated 290 mOsm/kg (285-295); Potassium 3.9 mmol/L (3.5-5.1); Sodium 137 mmol/L (136-145)
--- NOTE | 2021-01-12 06:00 | XR_ITS ---
WS: [id number] CHEST 2 VIEWS HISTORY: Right upper lobe pneumonia COMPARISON: 01/10/2021 Lungs: Severe pulmonary hyperexpansion. Thick reticular interstitial thickening throughout the RIGHT lung. Overall slight improvement since the prior study of 01/10/2021. Small bilateral pleural effusion s without increase in size. Cardiac size: Normal. Mediastinum/Aorta: Mild atherosclerosis aorta. Bones: Normal. XR/XR chest 2V* [id number] IMPRESSION: 1. Improving reticular interstitial thickening throughout the RIGHT lung. 2. Severe emphysema. 3. Small bilateral pleural effusions.
[2021-01-12] MEDS: sodium chloride 0.9% 1,000 ML 50 ML IV (06:03)
[2021-01-12] MEDS: nitroglycerin 1 gm/inch oint Pkt 0.5 INCH TOPICAL ×4 (06:05→23:57)
--- NOTE | 2021-01-12 06:28 | PC.NURSE ---
PT IS RESTING IN BED. PT PULLED OUT BOTH IV'S RIGHT AND LEFT AC. NEW 20G WAS PLACED IN THE RIGHT FA. PT WAS STUCK 4X DT PT INTOLERANCE. WILL CONTINUE TO MONITOR.
--- NOTE | 2021-01-12 07:59 | PC.NURSE ---
Pt NPO order wasnt placed this morning. Pt ate half a poached egg and drank half of her coffee. Dr. Restrepo was notified and received orders to hold off on procedure until this afternoon.
[2021-01-12] MEDS: aspirin 81 mg EC Tablet PO (08:16)
[2021-01-12] MEDS: spironolactone 25 mg Tablet PO (08:17)
[2021-01-12] MEDS: losartan 50 mg Tablet 25 MG PO (08:17)
[2021-01-12] MEDS: multivitamin therapeutic Tablet 1 TAB PO (08:17)
[2021-01-12] MEDS: nicotine 21 mg Patch 1 PATCH TRANSDERMA (08:18)
[2021-01-12] MEDS: potassium chloride ER 20 mEq Tablet 40 MEQ PO (08:18)
[2021-01-12] MEDS: pantoprazole DR 40 mg Tablet PO (08:18)
[2021-01-12] MEDS: metoprolol tartrate 50 mg Tablet 75 MG PO ×2 (08:23→21:25)
[2021-01-12] MEDS: FUROsemide 10 mg/mL SDV 4mL 40 MG IVP (08:53)
--- NOTE | 2021-01-12 09:56 | PM.PN ---
Subjective Subjective: Interval history: The patient is feeling okay. She has not had any chest pain or palpitations. She was scheduled for the cardiac catheterization this morning. Apparently she ate the breakfast by mistake. Her vital signs are stable. She remains afebrile. Medications: Reviewed: Yes Medication Review Details: Current Medications Albuterol/Ipratropium (Ipratropium-Albuterol 3 Ml Neb) 3 ml INHALATION Q6H PRN PRN Reason: SHORTNESS OF BREATH Aspirin (Aspirin 81 Mg Ec Tablet) 81 mg PO DAILY FORMERLY [facility], [facility]1983 Last Admin: 01/12/21 08:16 Dose: 81 mg Documented by: Atorvastatin Calcium (Atorvastatin 40 Mg Tablet) 40 mg PO BEDTIME JUNAID Last Admin: 01/11/21 20:32 Dose: 40 mg Documented by: Bisacodyl (Bisacodyl 5 Mg Tablet) 10 mg PO DAILY PRN PRN Reason: CONSTIPATION Enoxaparin Sodium (Enoxaparin 60 Mg/0.6 Ml Syringe) 50 mg SUBCUT Q12H FOR[facility], [facility]–1983 Last Admin: 01/12/21 03:02 Dose: 50 mg Documented by: Furosemide (Furosemide 10 Mg/Ml Sdv 4ml) 40 mg IVP Q24H JUNAID Last Admin: 01/12/21 08:53 Dose: 40 mg Documented by: Ceftriaxone Sodium 1,000 mg/ (Sodium Chloride) 50 mls @ 100 mls/hr IV Q24H FOR[facility], [facility]; Protocol Last Infusion: 01/11/21 11:08 Dose: Infused Documented by: Doxycycline Hyclate 100 mg/ (Sodium Chloride) 100 mls @ 100 mls/hr IV Q12H [facility], [facility]; Protocol Last Infusion: 01/12/21 00:47 Dose: Infused Documented by: Sodium Chloride (Sodium Chloride 0.9%) 1,000 mls @ 50 mls/hr IV .Q20H ONE Stop: 01/13/21 01:59 Last Admin: 01/12/21 06:03 Dose: 50 mls/hr Documented by: Losartan Potassium (Losartan 50 Mg Tablet) 25 mg PO DAILY JUNAID Last Admin: 01/12/21 08:17 Dose: 25 mg Documented by: Metoprolol Tartrate (Metoprolol Tartrate 50 Mg Tablet) 75 mg PO BID@0900,2100 FOR[facility], [facility] Last Admin: 01/12/21 08:23 Dose: 75 mg Documented by: Morphine Sulfate (Morphine 4 Mg/Ml Sdv 1 Ml) 2 mg IVP Q4H PRN PRN Reason: SEVERE PAIN Multivitamins Therapeutic (Multivitamin Therapeutic Tablet) 1 tab PO DAILY@08 [facility], [facility] Last Admin: 01/12/21 08:17 Dose: 1 tab Documented by: Nicotine (Nicotine 21 Mg Patch) 1 patch TRANSDERMA DAILY FOR[facility], [facility] Last Admin: 01/12/21 08:18 Dose: 1 patch Documented by: Nicotine Polacrilex (Nicotine 2 Mg Gum) 2 mg BUCCAL Q2H PRN PRN Reason: WITHDRAWAL Nitroglycerin (Nitroglycerin 1 Gm/Inch Oint Pkt) 0.5 inch TOPICAL Q6H FOR[facility], [facility]1983 Last Admin: 01/12/21 06:05 Dose: 0.5 inch Documented by: Ondansetron HCl (Ondansetron 2 Mg/Ml Sdv 2 Ml) 4 mg IVP Q8H PRN PRN Reason: vomiting, or N/V if npo Pantoprazole Sodium (Pantoprazole Dr 40 Mg Tablet) 40 mg PO DAILY [facility], [facility]1983 Last Admin: 01/12/21 08:18 Dose: 40 mg Documented by: Potassium Chloride (Potassium Chloride Er 20 Meq Tablet) 40 meq PO DAILY [facility], [facility] Last Admin: 01/12/21 08:18 Dose: 40 meq Documented by: Spironolactone (Spironolactone 25 Mg Tablet) 25 mg PO DAILY [facility] Last Admin: 01/12/21 08:17 Dose: 25 mg Documented by: Vitals/I&O/Wt Last Vital Signs Temp 97.9 F 01/12/21 07:14 Pulse 86 01/12/21 08:37 Resp 18 01/12/21 08:37 BP 134/94 01/12/21 07:14 Pulse Ox 96 01/12/21 08:37 01/11/21 01/12/21 01/12/21 22:59 06:59 14:59 Intake Total 240 / 1110 580 / 1690 Balance 240 / 1110 580 / 1690 Physical Exam Narrative: EXAM NARRATIVE: GENERAL: The patient is alert and oriented times three. Not in any acute distress. HEENT: Minimal pallor,no icterus or lymphadenopathy. The pupils are symmetrical in size. Oral cavity: There are no mucous membrane lesions. NECK: Trachea appears to be central. No masses noted. No JVD or thyromegaly appreciated. No carotid bruit. RESPIRATORY: Chest is symmetrical. No intercostals muscle retraction or any accessory muscle activation. There is no chest wall tenderness. Breath sounds are heard bilaterally. No rales or rhonchi heard. No evidence of any consolidation. Few scattered crackles bilaterally BREASTS: Deferred. HEART: The heart sounds are normal. No S3 or S4. Short systolic murmur in the mitral area. No diastolic murmurs. ABDOMEN: No vessel pulsations or distention. No tenderness. No organomegaly appreciated. No abdominal bruit. Bowel sounds are normally heard. : Deferred. RECTAL: Deferred. LYMPHATIC: No lymphadenopathy noted in the neck or groin. EXTREMITIES: No edema or cyanosis. No clubbing. Peripheral pulses are palpable but weak bilaterally. No cyanosis. MUSCULOSKELETAL: No acute joint deformities or swelling. SKIN: There are no significant scars or skin rash noted. NEUROPSYCHIATRIC: No focal motor deficits. Data : 01/12/21 04:26 01/12/21 04:26 Other Labs: Laboratory Last Values WBC 10.2 10^3/uL (4.0-10.0) H 01/12/21 04:26 RBC 3.34 10^6/uL (4.1-5.3) L 01/12/21 04:26 Hgb 9.7 g/dL (11.5-15.3) L 01/12/21 04:26 Hct 30.8 % (37.0-47.0) L 01/12/21 04:26 MCV 92.2 fL (81-99) 01/12/21 04:26 MCH 29.0 pg (28.0-34.0) 01/12/21 04:26 MCHC 31.5 g/dL (30.0-36.0) 01/12/21 04:26 RDW 15.0 % (12.1-15.1) 01/12/21 04:26 Plt Count 332 10^3/cmm (130-400) 01/12/21 04:26 MPV 10.2 fL (7.4-10.4) 01/12/21 04:26 Neut % (Auto) 75.4 % 01/12/21 04:26 Lymph % (Auto) 15.3 % 01/12/21 04:26 [place] % (Auto) 7.8 % 01/12/21 04:26 Eos % (Auto) 0.7 % 01/12/21 04:26 Baso % (Auto) 0.3 % 01/12/21 04:26 Neut # (Auto) 7.68 10^3/uL (1.8-7.7) 01/12/21 04:26 Lymph # (Auto) 1.6 10^3/uL (0.8-4.8) 01/12/21 04:26 [place] # (Auto) 0.8 10^3/uL (0.2-0.9) 01/12/21 04:26 Eos # (Auto) 0.1 10^3/uL (0.0-0.8) 01/12/21 04:26 Baso # (Auto) 0.0 10^3/uL (0.0-0.1) 01/12/21 04:26 Nucleated RBC % (auto) 0 % 01/12/21 04:26 Nucleated RBCs # 0.0 /100WBC 01/12/21 04:26 PT 14.10 SECONDS (12.1-14.9) 01/08/21 12:33 INR 1.06 (0.8-1.2) 01/08/21 12:33 APTT 36.6 SECONDS (23.9-36.7) 01/08/21 12:33 Sodium 137 mmol/L (136-145) 01/12/21 04:26 Potassium 3.9 mmol/L (3.5-5.1) 01/12/21 04:26 Chloride 100 mmol/L (98-107) 01/12/21 04:26 Carbon Dioxide 27 mmol/L (22-29) 01/12/21 04:26 Anion Gap 13.9 (5-19) 01/12/21 04:26 BUN 28 mg/dL (8-23) H 01/12/21 04:26 Creatinine 0.6 mg/dL (0.5-0.9) 01/12/21 04:26 GFR Calculation 101.6 mL/min (90-130) 01/12/21 04:26 Glucose 102 mg/dL (65-115) 01/12/21 04:26 Estimat Average Glucose 100 01/09/21 02:55 Hemoglobin A1c 5.1 % (4.0-6.0) 01/09/21 02:55 Calculated Osmolality 290 mOsm/kg (285-295) 01/12/21 04:26 Lactate 1.0 mmol/L (0.5-2.2) 01/10/21 10:00 Calcium 8.8 mg/dL (8.5-10.5) 01/12/21 04:26 Phosphorus 3.1 mg/dL (2.5-4.5) 01/11/21 04:25 Magnesium 1.8 mg/dL (1.7-2.3) 01/11/21 04:25 Total Bilirubin 0.4 mg/dL (0.15-1.2) 01/11/21 04:25 AST 25 U/L (0-32) 01/11/21 04:25 ALT 23 U/L (0-33) 01/11/21 04:25 Alkaline Phosphatase 87 IU/L (35-105) 01/11/21 04:25 Troponin T Gen 5 ng/L 1081 ng/L (0-10) H* 01/10/21 02:57 NT-Pro-B Natriuret Pep 5372 pg/mL (0-125) H 01/08/21 12:33 Total Protein 6.4 g/dL (6.6-8.7) L 01/11/21 04:25 Albumin 3.2 g/dL (3.5-5.2) L 01/11/21 04:25 Globulin 3.2 g/dL (1.3-4.6) 01/11/21 04:25 Triglycerides 157 mg/dL (0-150) H 01/09/21 02:55 Cholesterol 158 mg/dL (0-200) 01/09/21 02:55 LDL Cholesterol, Calc 84 mg/dL (50-129) 01/09/21 02:55 HDL Cholesterol 43 mg/dL (60-100) L 01/09/21 02:55 LDL/HDL Ratio 1.95 RATIO (0.00-3.22) 01/09/21 02:55 Cholesterol/HDL Ratio 3.67 mg/dL (0.0-4.40) 01/09/21 02:55 Procalcitonin 0.07 ng/mL (0-0.5) 01/09/21 02:55 TSH 0.90 uIU/mL (0.27-4.20) 01/08/21 12:33 Urine Color Yellow (Yellow) 01/08/21 14:54 Urine Appearance Clear (CLEAR) 01/08/21 14:54 Urine pH 6 (5-7) 01/08/21 14:54 Ur Specific [place] 1.010 (1.005-1.030) 01/08/21 14:54 Urine Protein Neg (Negative) 01/08/21 14:54 Urine Glucose (UA) Norm (Normal) 01/08/21 14:54 Urine Ketones Negative (Negative) 01/08/21 14:54 Urine Blood Neg (Negative) 01/08/21 14:54 Urine Nitrate Negative (Negative) 01/08/21 14:54 Urine Bilirubin Neg (Negative) 01/08/21 14:54 Urine Urobilinogen Norm mg/dL (Negative) 01/08/21 14:54 Ur Leukocyte Esterase Negative (Negative) 01/08/21 14:54 Micro: Microbiology 01/10/21 11:01 Blood Culture - Preliminary Blood NEGATIVE TO DATE 01/10/21 11:00 Blood Culture - Preliminary Blood NEGATIVE TO DATE CXR: My impression: X-ray from today 1. Improving reticular interstitial thickening throughout the RIGHT lung. 2. Severe emphysema. 3. Small bilateral pleural effusions. A&P Assessment and plan (1) Acute on chronic systolic heart failure: The heart failure is currently compensated. In view of the patient is a complicated myocardial infarction, she requires a cardiac catheterization, to further evaluate the coronary status and decide on further management. This was discussed with the patient and family which they understood well and consented to proceed. The cardiac catheterization lab is down this afternoon, we may go ahead and schedule for the procedure in the morning. Patient be kept n.p.o. after midnight I will discontinue the IV Lasix and start on p.o. Lasix 40 mg daily. Status: Acute (2) Non-ST elevated myocardial infarction (non-STEMI): Patient is on Plavix and heparin in addition to her medications. So far she seems to be doing okay and stable hemodynamically. May continue on the current medications. Based on the cardiac catheterization findings, further recommendations will be made For some reason, the patient has not been getting the daily Plavix. I may give her 300 mg of Plavix p.o. today followed by 75 mg daily Status: Acute (3) Community acquired pneumonia: The pneumonia is improving. White cell count is back to baseline. Continue on the antibiotics. Status: Acute Qualifiers: Laterality: right Lung location: upper lobe of lung Qualified Code(s): J18.9 - Pneumonia, unspecified organism (4) Tobacco abuse: Smokes 2 pack a day for the last more than 30 years. She also smokes marijuana intermittently. No IV drug abuse or any other substance abuse. Advised strongly to quit smoking. She seems understand implications. Status: Acute (5) Elevated blood pressure reading: Blood pressure is in the normal range. May continue on the current medications. Status: Acute Additional A&P Information Other problems are Elevated liver enzymes, repeat LFT in the morning Elevated white cell count, currently returned back to the baseline Mild hyponatremia, improving Anemia, multifactorial, fairly stable We will do a repeat CMP and CBC in the morning. Schedule for cardiac catheterization at 8:30 in the morning. Plavix 300 mg p.o. today followed by 75 mg p.o. daily I will discontinue the IV Lasix and start on p.o. Lasix 40 mg daily Continue on all medications as it is Attestations Medical Necessity Statement*: Patient requires continued hospital stay for close monitoring and further management Coding Level of Care Code Acute [employer] for [employer]rmel[employer] Brown Diagnoses Acute on chronic systolic heart failure I50.23 Non-ST elevated myocardial infarction (non-STEMI) I21.4 Community acquired pneumonia J18.9 Laterality: right Lung location: upper lobe of lung Tobacco abuse Z72.0 Elevated blood pressure reading R03.0
[2021-01-12] MEDS: cefTRIAXone 1,000 MG in sodium chloride 0.9% (plus) 50 ML 100 MG IV (10:51)
[2021-01-12] MEDS: doxycycline 100 MG in sodium chloride 0.9% (plus) 100 ML IV ×2 (11:59→23:57)
[2021-01-12] MEDS: clopidogrel 300 mg Tablet PO (16:44)
--- NOTE | 2021-01-12 18:48 | P.PN_ITS ---
Subjective Subjective: Interval history: She reports she is continuing to improve. No chest pain. Breathing continues to improve. Occasional nicotine cravings. Vitals/I&O/Wt Last Vital Signs Temp 97.9 F 01/12/21 14:55 Pulse 81 01/12/21 14:55 Resp 21 H 01/12/21 14:55 BP 113/69 01/12/21 14:55 Pulse Ox 96 01/12/21 14:55 01/12/21 01/12/21 01/12/21 06:59 14:59 22:59 Intake Total 580 / 1690 517.5 / 517.5 240 / 757.5 Balance 580 / 1690 517.5 / 517.5 240 / 757.5 Physical Exam Const: COMMON NORMALS: no acute distress and patient oriented x3 HENMT: COMMON NORMALS: oropharynx normal Neck/C-Spine: COMMON NORMALS: no JVD Resp: COMMON NORMALS: normal respiratory effort and clear to auscultation bilaterally AUSCULTATION: clear to auscultation bilaterally Cardio: COMMON NORMALS: no JVD, regular rhythm, S1 normal heart sound present, S2 normal heart sound present and No murmurs present (Cardio) RHYTHM: regular rhythm HEART SOUNDS: S1 normal heart sound present and S2 normal heart sound present GI: COMMON NORMALS: Normal to inspection, nondistended, normoactive bowel sounds present, Soft to palpation and non-tender PALPATION: Yes Soft to pal pation Extremity: COMMON NORMALS: no joint enlargement and no pedal edema Neuro: COMMON NORMALS: patient oriented x3 and moves all extremities Skin: COMMON NORMALS: no rashes or lesions noted GENERAL SKIN EXAM: no rashes or lesions noted Data : 01/12/21 04:26 01/12/21 04:26 A&P Assessment and plan (1) Community acquired pneumonia: Improving pneumonia and hypoxia. Leukocytosis continues to downtrend. Requirement for oxygen is decreasing. If continues to do well, plan for additional assessment by coronary geography tomorrow. N.p.o. after midnight. She had previously been reluctant in taking oxygen at home. She would like to try to wean off oxygen entirely if possible prior to discharge. Ceftriaxone, doxycycline. Continue oxygenation support. Wean off as tolerating. Status: Acute Qualifiers: Laterality: right Lung location: upper lobe of lung Qualified Code(s): J18.9 - Pneumonia, unspecified organism (2) Non-ST elevated myocardial infarction (non-STEMI): Plan for additional assessment with coronary angiography tomorrow in the morning due to equipment being repaired this evening. Appreciate additional assessment of NSTEMI by cardiology. Status: Acute (3) Acute heart failure: Acute systolic heart failure. EF 35-40% With plans for coronary geography her diuretic has been held. Monitor JOEL, although it appears it has been difficult to maintain a log of output. Status: Acute (4) COPD (chronic obstructive pulmonary disease): Not in exacerbation does not have; rhonchi, cough, and overall does not appear to have COPD exacerbation. Does have pneumonia as above. Status: Acute Qualifiers: COPD type: unspecified COPD Qualified Code(s): J44.9 - Chronic obstructive pulmonary disease, unspecified (5) Tobacco abuse: Encourage cessation. Status: Acute Attestations Medical Necessity Statement*: Continue admission for assessment and treatment of pneumonia, hypoxia, NSTEMI requiring additional evaluation by coronary angiography. Coding Level of Care Code Acute Assistant [employer] for [facility] Diagnoses Community acquired pneumonia J18.9 Laterality: right Lung location: upper lobe of lung Non-ST elevated myocardial infarction (non-STEMI) I21.4 Acute heart failure I50.9 COPD (chronic obstructive pulmonary disease) J44.9 COPD type: unspecified COPD Tobacco abuse Z72.0
--- NOTE | 2021-01-12 19:31 | PC.NURSE ---
Per Dr. Vazquez bibliographic services specialist portfolio consultant we are to hold the patient's Lovenox 50mg that is due at 0300.
[2021-01-12] MEDS: atorvastatin 40 mg Tablet PO (21:25)
[2021-01-13] VITALS (64 sets, daily range): BP systolic 103–150; BP diastolic 62–99; PULSE 77–121; RESP 12–26; TEMP 36.4–36.9; O2SAT 90–99
[2021-01-13 05:05] LABS: Basophils % 0.3 %; Eosinophils # 0.1 10^3/uL (0.0-0.8); Eosinophils % 0.9 %; Hematocrit 33.9 % (37.0-47.0); Lymphocytes % 16.7 %; Mean Corpuscular HGB Conc 32.4 g/dL (30.0-36.0); Mean Corpuscular Hemoglobin 29.6 pg (28.0-34.0); Mean Corpuscular Volume 91.1 fL (81-99); Mean Platelet Volume 10.3 fL (7.4-10.4); Monocytes # 0.7 10^3/uL (0.2-0.9); Monocytes % 6.2 %; Neutrophils # 8.87 10^3/uL (1.8-7.7); Neutrophils % 75.5 %; Nucleated Red Blood Cells % 0 %; Platelet Count 374 10^3/cmm (130-400); Red Blood Count 3.72 10^6/uL (4.1-5.3); Red Cell Distribution Width 14.8 % (12.1-15.1); White Blood Count 11.8 10^3/uL (4.0-10.0)
[2021-01-13 05:30] LABS: Alanine Aminotransferase 22 U/L (0-33); Albumin Level 3.6 g/dL (3.5-5.2); Alkaline Phosphatase 80 IU/L (35-105); Aspartate Amino Transferase 19 U/L (0-32); Blood Urea Nitrogen 23 mg/dL (8-23); Calcium 9.1 mg/dL (8.5-10.5); Carbon Dioxide 25 mmol/L (22-29); Chloride 100 mmol/L (98-107); Creatinine Clr Calc Pharmacy 74.0515; Globulin 3.3 g/dL (1.3-4.6); Glomerular Filtration Rate 101.6 mL/min (90-130); Glucose 101 mg/dL (65-115); Osmolality Calculated 286 mOsm/kg (285-295); Sodium 136 mmol/L (136-145); Total Bilirubin 0.4 mg/dL (0.15-1.2); Total Protein 6.9 g/dL (6.6-8.7)
[2021-01-13] MEDS: nitroglycerin 1 gm/inch oint Pkt 0.5 INCH TOPICAL (06:15)
--- NOTE | 2021-01-13 07:00 | XACV_ITS ---
Exam Room: [facility] Ht: 155 cm Wt: 47 kg BSA: 1.42 m2 Gender: Female : 1960 Any Known Allergies: No known allergies Exam Priority: Routine Procedure(s): Procedure Description: Diagnostic procedure Procedure Description: PCI procedure Procedure Description: Left ventriculography Procedure Description: O2 saturation Procedure Description: Drug Eluting Coronary Stent Procedure Description: PTCA Procedure Description: Miscellaneous Procedure Description: ACT Procedure Description: Coronary Angiography Procedure Description: Pressure Wire Diagnostic Cath Status: Urgent Diagnostic Findings * The left main is a medium caliber vessel which was found to have mild diffuse disease. No significant stenotic lesions. * The left anterior descending artery is a medium caliber vessel which appears to wrap around the LV apex minimally. The proximal to the mid LAD was found to have 50 to 60% diffuse tubular narrowing. The first diagonal branch appears to bifurcate proximally. One of the bifurcation branches was found to have around 80 to 90% diffuse narrowing proximally. The other branches found to have around 50 to 60% diffuse narrowing proximally. The distal left and descending artery was found to have minimal intimal irregularities. * The left circumflex artery is a medium caliber vessel which he was found to have severe diffuse stenosis proximally which tapers down to a 95% lesion just before the origin of the first obtuse marginal. The ostium of the first more obtuse marginal artery also was found to have high-grade lesion. Right after this, the circumflex artery was found to be bifurcating into 2 relatively small arteries by the branches. Both these branches were found to have moderate to severe diffuse disease. Grade 2 left to right collaterals were noted filling up the PDA and the PLV branches of the right coronary artery through collaterals from the obtuse marginal and septal perforators of the left. * There is a obtuse marginal/intermedius artery, small to medium caliber, with a moderate diffuse disease. * The right coronary artery is a medium caliber dominant vessel which was found to have a 70% ostial stenosis. After giving of the sinus dale branch, the artery appears to be totally occluded proximally. PCI Status: Urgent PCI Indication: NSTE - ACS Interventional Findings * Mid Left Anterior Descending Coronary Artery: 75% stenosis treated with MDT R ANDRZEJ 2.75X22 ANTONIO and MDT NC EUPHORA RX 3.33H93EJ BALLOON. 0% residual stenosis, MARIAN: 3 flow. * Proximal Circumflex Coronary Artery: 90% stenosis treated with AB MINI TREK 2.00X20 RX BALLOON, MDT R ANDRZEJ 2.5X30 ANTONIO, and MDT NC EUPHORA RX 2.10Q12TD BALLOON. 0% residual stenosis, MARIAN: 3 flow. Conclusions 1. This is a 60-year-old white female with a history of smoking abuse and strong family history for premature atherosclerotic heart disease, presents with complaints of progressive shortness of breath and chest pain for a week. She was found to have elevated troponin T in the 1200 range. She also had features of congestive heart failure. She was treated with the diuretics, subcu Lovenox, beta-alize, ARB, statin and Plavix. Echocardiogram revealed multiple wall motion normalities with a diminished ejection fraction of around 39%. In view of her presenting symptoms and the abnormal ability findings, in order to further evaluate her coronary status as well as the hemodynamics, a cardiac catheterization was recommended. Patient underwent left and right heart catheterization with a left and right coronary angiogram and LV angiogram today. The findings are as follows.. 2. Coronary angiogram revealed high-grade stenosis of around 95% in the proximal circumflex artery involving the ostium of the first obtuse marginal branch. Moderate to severe disease in the second and third obtuse marginal branches. These vessels are relatively of small caliber. Moderate diffuse stenosis in the proximal to mid LAD. Total occlusion of the right coronary artery proximally. Grade 2 left to right collaterals. Ejection fraction around 30%. LVEDP of 16 mmHg. Mild pulmonary hypertension. Cardiac output of 3.0 with an index of 2.0 by Juliocesar's method.. 3. Patient presented with non-ST elevation SC with severe proximal to mid diffusely disease 90 to 95% circumflex lesion. Mid LAD is also appeared to be 75% stenotic. For complete revascularization we addressed both lesions as patient has proximal to mid completely chronically occluded RCA which fills from left to right collaterals. Patient declined CABG as thought to be high risk.. 4. Mid Left Anterior Descending Coronary Artery was treated with Drug Eluting Stent and Balloon. 5. Proximal Circumflex Coronary Artery was treated with two Balloon and Drug Eluting Stent. Recommendations * I reviewed and discussed the cardiac catheterization data with Dr Hall. PCI of the circumflex artery lesion with a possible FFR of the LAD lesion was thought to be appropriate. Dr Hall took over further management of this patient at this point.. * 1-Return to inpatient for close monitoring and routine cath care 2-Risk factor modification for secondary prevention 3-Statin and aspirin 81 mg life--long, if tolerated 4-Patient was pre-loaded with 300 mg of Plavix, continue Plavix 75mg p.o. daily for at least one year. We will assess at the end of one year again to continue if further or not 5-Continue optimal medical management 6-Follow up with Dr. Restrepo in four weeks and your primary care in 10 days. Diagnostic RX Recommendation: PCI w/o planned CABG Ventriculography Ejection Fraction: 30.0 % LV EDP: 16 mmHg Left Ventriculography Findings: * LV gram was performed the MEDINA position. The LV cavity appears to be mildly dilated. There was severe diffuse hypokinesia of the left ventricle with an ejection fraction around 30%. No filling defects were noted. No significant mitral valve prolapse of mitral regurgitation. The LVEDP was 16 mmHg. Pressures Phase:Rest AO : 163 / 54 ( 97 ) @ 3:14:00 AM 147 / 46 ( 91 ) @ 3:14:00 AM LV : 129 / 2 / @ 3:13:00 AM 131 / 3 / @ 3:14:00 AM 131 / 3 / @ 3:14:00 AM RV : 37 / -1 / @ 2:47:00 AM PA : 36 / 17 ( 26 ) @ 2:46:00 AM RA : a wave = v wave = mean = 7 @ 2:48:00 AM Hemodynamic Findings Right atrial pressure was 7. The pulmonary artery pressure was 36/17 with a mean of 26. RV pressure was 37/1. The right atrial pressure was 7. Pulmonary capillary wedge pressure was 16. The cardiac output was calculated to be 3.0 with an index of 2.0(Ficks). O2 Content Phase:Rest PA : O2 Content O2: 46.3 @ 3:14:00 AM Saturations Phase:Rest AO : 83 @ 3:14:00 AM RA : 51 @ 3:13:00 AM RV : 45 @ 3:14:00 AM PA : 46 @ 3:14:00 AM Cardiac Output Phase:Rest Juliocesar : 3 @ 3:14:00 AM Juliocesar Cardiac Index: 2 @ 3:14:00 AM Valves Phase:DefaultPhase AV : 0.0 @ 10:38:17 AM AV Mean Gradient: 0.0 @ 10:38:17 AM Clinical Evaluation EBL: 5mL-10mL Procedural Details Procedure Consent Obtained. Pre-Procedure Time Out. Identified patient by full name and date of as verbalized by the patient/guarantor. Does the consent match the physician's order: Yes. Accurate & Complete Informed Consent: Yes. Inpatient/Outpatient History & Physical on Chart: Yes. If H&P is completed, is and addenduem needed: No; If yes, is the addendum complete: N/A. Visualize and Verify Site with Patient/Guarantor: N/A. Relevant Radiology Images available: Yes. The risks, benefits, and alternatives of sedation and/or procedure were discussed by physician. The patient agrees to continue. Procedure started. Chest Pain Symptom Assessment: Typical Angina Symptoms. Cardiovascular Instability: NO. [facility] Clinical Fraility Score: 3: Managing Well. Program Director Substance Abuse Indications: Suspected CAD. Correct patient, site and procedure confirmed by cath team. Current diagnosis: Chest Pain. PERRLA. Strong, equal hand project coordinator bilaterally. Lungs clear x 5 lobes. IV Site on Arrival: 18 gauge in the right anticubital. IV Fluids: 0.9% NaCl at KVO. 0 mL infused prior to optical laboratory manager. Pre Procedural Pulses: bilateral dorsalis pedis was 2+. Pre Procedural Pulses: bilateral posterior tibial was 2+. Pre Procedural Pulses: bilateral radial was 3+. bilateral groins was prepped with chloroprep then draped in the usual sterile fashion. right radial was prepped with chloroprep then draped in the usual sterile fashion. Physician notified. Baseline sample Acquired. HR: 93 BPM. Physician arrived. Equipment: 6F - Radial. ACIST Manifold Kit Model BT 2000. Cardiac Cath Pack. Heparinized Saline (2 units/mL), 1000 mL bag. Physician scrubbed in. Immediate Pre-Procedure Time Out. Correct Patient: Yes; Correct Procedure: Yes; Correct Site: Yes; Correct Patient Position: Yes; Correct Supplies: Yes; Dried Flammable Prep: Yes; Blood Products Available: No;. Lidocaine 1% infiltrated to the right brachial. [place] MON catheter inserted. Glidewire inserted. Oximetry samples were obtained. Normal venous range: 60-85%. Normal arterial range: 95-100%. Pressure measurements obtained. [place] out. Lidocaine 1% infiltrated to the right radial. Right radial site aborted, will gain access in groin. TR band applied to right radial site. Lidocaine 1% infiltrated to the right groin. Arterial access obtained with micropuncture set. AO sat drawn. Patient placed on 2lpm nasal cannula. A 5 senegalese JL4 catheter in over wire. Multiple views taken of left coronary artery. Catheter out. A 5 senegalese JR4 catheter in over wire. Multiple views taken of right coronary artery. Catheter out. A 5 senegalese Angled Pig catheter in over wire. EDP Sample taken: LV 129/2,17; HR: 87 BPM; SpO2: 97%. LV gram performed in MEDINA @ 10 mL/second for a total of [address] Hall notified. EDP Sample taken: LV 131/3,18; HR: 90 BPM; SpO2: 96%. Pullback taken: LV 131/3,18; AO 163/54(97); Mean: 0mmHg, Peak to Peak: 0mmHg, SEP: 9sec/min; HR: 87 BPM; SpO2: 96%. Side port of sheath attached to Normal Saline flush at KVO to maintain patency. Dr. Hall arrived to view films. Dr. Hall and Lauro reviewed films and discussed. Dr. Hall scrubbed in to perform intervention. 5FR sheath exchanged for 6FR sheath. 6 senegalese XB 3 guide catheter was inserted over the wire. [place] wire inserted. [place]oxie wire out. Runthrough wire inserted. Inflation number : 1 A AB MINI TREK 2.00X20 RX BALLOON was prepped and advanced across the Prox CX , then inflated to 14 JUAN for 0:12 seconds. Inflation number: 2 The AB MINI TREK 2.00X20 RX BALLOON was reinflated across the Prox CX, to 14 JUAN for 0:12 seconds. Balloon out. Inflation Number : 3 A MDT R ANDRZEJ 2.5X30 ANTONIO -Lot Number# [id number] was prepped and advanced across the Prox CX. The stent was deployed at 12 JUAN for 0:34 seconds. Stent expiration date: 08/09/2022. ACT drawn. Results 198 seconds. Therapeutic limits - pre-heparin administration 90-150 seconds and monitoring heparin during a vascular procedure >250 seconds. Stent balloon out over wire. Inflation number : 4 A MDT NC EUPHORA RX [id number] BALLOON was prepped and advanced across the Prox CX , then inflated to 14 JUAN for 0:16 seconds. Inflation number: 5 The MDT NC EUPHORA RX 2.52R73PL BALLOON was reinflated across the Prox CX, to 16 JUAN for 0:14 seconds. Balloon and wire out. Pressure wire inserted. Pressure wire out. Pressure Wire inserted. IFR to the Mid LAD 0.75. Inflation Number : 1 A MDT R ANDRZEJ 2.75X22 ANTONIO -Lot Number#[id number] was prepped and advanced across the Mid LAD. The stent was deployed at 16 JUAN for 0:30 seconds. Expiration date: 09/18/2022. Stent balloon and wire out. [place] wire inserted. Inflation number : 2 A MDT NC EUPHORA RX 3.45U63LV BALLOON was prepped and advanced across the Mid LAD , then inflated to 16 JUAN for 0:20 seconds. Inflation number: 3 The MDT SYED EUPHORA RX 3.35W84ZM BALLOON was reinflated across the Mid LAD, to 16 JUAN for 0:13 seconds. Balloon out. Wire out. ACT drawn. Results 246 seconds. Therapeutic limits - pre-heparin administration 90-150 seconds and monitoring heparin during a vascular procedure >250 seconds. Sheath(s) sutured into position with 2-0 silk and sterile 4x4's and Op-site applied over the site. No oozing or signs and symptoms of hematoma noted. Arterial sheath flushed and connected to tranducer and pressure bag with heparinized saline. A Suture was successful obtaining hemostatsis at the Right Femoral artery insertion site. Post Procedure: Pulses reassessed and unchanged. PERRLA. Strong, equal hand project coordinator bilaterally. No VTE prophylaxis required. Medication's Wasted: Nitro = 49.6 mg. Medication's Wasted: Heparin = 3500 units. Medication's Wasted: Other = Adenosine 90 mg. Total IV fluids: 300 mL. Medication's Wasted: Other = NS 100 mL. Contrast type used: Omnipaque 300 mgI/mL, 500 mL bottle. PCI Indication: NSTE. Post-op diagnosis: Severe multivessel CAD. Complications: None. Estimated blood loss: 5mL-10mL. Vital chart was stopped. Procedure completed. Patient transferred by bed to 1st floor. Access Site Site: Right Brachial Vein Sheath Size: 6 Fr Hemostasis Success: Unsuccessful Site: Right Femoral artery Sheath Size: 5 Fr Hemostasis Method: Suture Hemostasis Success: Successful Procedure Medications Start: 8:29 AM Stop: 8:29 AM Medication: Fentanyl Amount: 50 mcg Route: I.V. Start: 8:33 AM Stop: 8:33 AM Medication: Versed Amount: 1 mg Route: I.V. Start: 8:39 AM Stop: 8:39 AM Medication: Versed 1 mg and Fentanyl 25 mcg Amount: 1 Route: I.V. Start: 8:56 AM Stop: 8:56 AM Medication: Fentanyl Amount: 25 mcg Route: I.V. Start: 8:58 AM Stop: 8:58 AM Medication: Versed Amount: 1 mg Route: I.V. Start: 9:06 AM Stop: 9:06 AM Medication: Heparin Amount: 1500 units Route: I.V. Start: 9:38 AM Stop: 9:38 AM Medication: Heparin Amount: 6000 units Route: I.V. Start: 9:54 AM Stop: 9:54 AM Medication: Heparin Amount: 3000 units Route: I.V. Start: 9:55 AM Stop: 9:55 AM Medication: Nitrogylcerin Amount: 200 mcg Route: I.C. Start: 10:00 AM Stop: 10:00 AM Medication: Nitrogylcerin Amount: 200 mcg Route: I.C. Start: 10:20 AM Stop: 10:20 AM Medication: Versed Amount: 1 mg Route: I.V. I, the attending physician, have reviewed and verified all procedure medications. Yes, all medications given per verbal order History/Risk Factors Hypertension: Yes Dyslipidemia: No Peripheral Arterial Disease (PAD): No Myocardial Infarction (SC): No Obesity: No Renal Disease: No Tobacco Use: Current/Recent(w/in 1 year) Prior Interventions PCI: No CABG: No Valve Surgery: No Report Signatures Interventional Workflow Finalized by Pancho Hall MD on 01/23/2021 02:31 PM Diagnostic Workflow Finalized by Dr Nikki Restrepo MD [facility] on 01/13/2021 04:54 PM
--- NOTE | 2021-01-13 08:27 | W.PM.OPSUD ---
Surgery/Procedure H&P Update DATE OF PROCEDURE: January 13, 2021 DATE H&P PERFORMED: 01/08/21 H&P UPDATE INFORMATION: I have reviewed H&P completed within last 30 days, I have examined patient prior to procedure and No changes to prior documentation PREOP DIAGNOSIS: Non-ST elevation myocardial infarction/CHF PLANNED PROCEDURE: Operation Date: 01/10/21 10:00 Proposed Procedures p Cardiac Catheterization(Bilateral) - Nikki Restrepo MD Operation Date: 01/13/21 08:30 Proposed Procedures p left and right Cardiac Catheterization I50.23 32505(Bilateral) - Nikki Restrepo MD PATIENT REASSESSED PRIOR TO SEDATION, WITH NO CHANGE NOTED: Yes PHYSICAL EXAM: alert, oriented x 3, clear to auscultation bilaterally and regular rate & rhythm AIRWAY EVAL/ANESTHESIA PLAN: normal airway, see other exam findings, ASA III, Local Anesthesia, Risks, benefits & alternatives of sedation and/or procedure discussed and Patient agrees to continue as planned
--- NOTE | 2021-01-13 09:27 | PM.PN ---
Subjective Subjective: Interval history: Patient denies any chest pain or any unusual shortness of breath. Her heart failure symptoms have significantly improved. Denies any fever or chills. No cough. She seems to be tolerating medications so far well Medications: Reviewed: Yes Medication Review Details: Current Medications Albuterol/Ipratropium (Ipratropium-Albuterol 3 Ml Neb) 3 ml INHALATION Q6H PRN PRN Reason: SHORTNESS OF BREATH Aspirin (Aspirin 81 Mg Ec Tablet) 81 mg PO DAILY [facility] Last Admin: 01/12/21 08:16 Dose: 81 mg Documented by: Atorvastatin Calcium (Atorvastatin 40 Mg Tablet) 40 mg PO BEDTIME [facility] Last Admin: 01/12/21 21:25 Dose: 40 mg Documented by: Bisacodyl (Bisacodyl 5 Mg Tablet) 10 mg PO DAILY PRN PRN Reason: CONSTIPATION Enoxaparin Sodium (Enoxaparin 60 Mg/0.6 Ml Syringe) 50 mg SUBCUT Q12H [facility] Last Admin: 01/13/21 02:55 Dose: Not Given Documented by: Furosemide (Furosemide 40 Mg Tablet) 40 mg PO DAILY@0800 [facility] Ceftriaxone Sodium 1,000 mg/ (Sodium Chloride) 50 mls @ 100 mls/hr IV Q24H [facility]; Protocol Last Infusion: 01/12/21 11:59 Dose: Infused Documented by: Doxycycline Hyclate 100 mg/ (Sodium Chloride) 100 mls @ 100 mls/hr IV Q12H [facility]; Protocol Last Infusion: 01/13/21 01:34 Dose: Infused Documented by: Losartan Potassium (Losartan 50 Mg Tablet) 25 mg PO DAILY [facility] Last Admin: 01/12/21 08:17 Dose: 25 mg Documented by: Metoprolol Tartrate (Metoprolol Tartrate 50 Mg Tablet) 75 mg PO BID@0900,2100 [facility] Last Admin: 01/12/21 21:25 Dose: 75 mg Documented by: Multivitamins Therapeutic (Multivitamin Therapeutic Tablet) 1 tab PO DAILY@08 [facility] Last Admin: 01/12/21 08:17 Dose: 1 tab Documented by: Nicotine (Nicotine 21 Mg Patch) 1 patch TRANSDERMA DAILY [facility] Last Admin: 01/12/21 08:18 Dose: 1 patch Documented by: Nicotine Polacrilex (Nicotine 2 Mg Gum) 2 mg BUCCAL Q2H PRN PRN Reason: WITHDRAWAL Nitroglycerin (Nitroglycerin 1 Gm/Inch Oint Pkt) 0.5 inch TOPICAL Q6H [facility] Last Admin: 01/13/21 06:15 Dose: 0.5 inch Documented by: Ondansetron HCl (Ondansetron 2 Mg/Ml Sdv 2 Ml) 4 mg IVP Q8H PRN PRN Reason: vomiting, or N/V if npo Pantoprazole Sodium (Pantoprazole Dr 40 Mg Tablet) 40 mg PO DAILY [facility] Last Admin: 01/12/21 08:18 Dose: 40 mg Documented by: Potassium Chloride (Potassium Chloride Er 20 Meq Tablet) 40 meq PO DAILY [facility] Last Admin: 01/12/21 08:18 Dose: 40 meq Documented by: Spironolactone (Spironolactone 25 Mg Tablet) 25 mg PO DAILY [facility] Last Admin: 01/12/21 08:17 Dose: 25 mg Documented by: Vitals/I&O/Wt Last Vital Signs Temp 98.0 F 01/13/21 06:47 Pulse 105 H 01/13/21 06:47 Resp 18 01/13/21 06:47 BP 117/84 01/13/21 06:47 Pulse Ox 90 01/13/21 06:47 01/12/21 01/13/21 01/13/21 22:59 06:59 14:59 Intake Total 240 / 757.5 100 / 857.5 Output Total 0 / 0 Balance 240 / 757.5 100 / 857.5 Physical Exam Narrative: EXAM NARRATIVE: GENERAL: The patient is alert and oriented times three. Not in any acute distress. HEENT: Minimal pallor,no icterus or lymphadenopathy. The pupils are symmetrical in size. Oral cavity: There are no mucous membrane lesions. NECK: Trachea appears to be central. No masses noted. No JVD or thyromegaly appreciated. No carotid bruit. RESPIRATORY: Chest is symmetrical. No intercostals muscle retraction or any accessory muscle activation. There is no chest wall tenderness. Breath sounds are heard bilaterally. No rales or rhonchi heard. No evidence of any consolidation. Few scattered crackles bilaterally BREASTS: Deferred. HEART: The heart sounds are normal. No S3 or S4. Short systolic murmur in the mitral area. No diastolic murmurs. ABDOMEN: No vessel pulsations or distention. No tenderness. No organomegaly appreciated. No abdominal bruit. Bowel sounds are normally heard. : Deferred. RECTAL: Deferred. LYMPHATIC: No lymphadenopathy noted in the neck or groin. EXTREMITIES: No edema or cyanosis. No clubbing. Peripheral pulses are palpable but weak bilaterally. No cyanosis. MUSCULOSKELETAL: No acute joint deformities or swelling. SKIN: There are no significant scars or skin rash noted. NEUROPSYCHIATRIC: No focal motor deficits. Const: COMMON NORMALS: alert Resp: COMMON NORMALS: clear to auscultation bilaterally AUSCULTATION: clear to auscultation bilaterally Neuro: SENSORIUM/ORIENTATION: Yes alert Data : 01/13/21 04:11 01/13/21 04:11 Other Labs: Laboratory Last Values WBC 11.8 10^3/uL (4.0-10.0) H 01/13/21 04:11 RBC 3.72 10^6/uL (4.1-5.3) L 01/13/21 04:11 Hgb 11.0 g/dL (11.5-15.3) L 01/13/21 04:11 Hct 33.9 % (37.0-47.0) L 01/13/21 04:11 MCV 91.1 fL (81-99) 01/13/21 04:11 MCH 29.6 pg (28.0-34.0) 01/13/21 04:11 MCHC 32.4 g/dL (30.0-36.0) 01/13/21 04:11 RDW 14.8 % (12.1-15.1) 01/13/21 04:11 Plt Count 374 10^3/cmm (130-400) 01/13/21 04:11 MPV 10.3 fL (7.4-10.4) 01/13/21 04:11 Neut % (Auto) 75.5 % 01/13/21 04:11 Lymph % (Auto) 16.7 % 01/13/21 04:11 Mercer % (Auto) 6.2 % 01/13/21 04:11 Eos % (Auto) 0.9 % 01/13/21 04:11 Baso % (Auto) 0.3 % 01/13/21 04:11 Neut # (Auto) 8.87 10^3/uL (1.8-7.7) H 01/13/21 04:11 Lymph # (Auto) 2.0 10^3/uL (0.8-4.8) 01/13/21 04:11 Mercer # (Auto) 0.7 10^3/uL (0.2-0.9) 01/13/21 04:11 Eos # (Auto) 0.1 10^3/uL (0.0-0.8) 01/13/21 04:11 Baso # (Auto) 0.0 10^3/uL (0.0-0.1) 01/13/21 04:11 Nucleated RBC % (auto) 0 % 01/13/21 04:11 Nucleated RBCs # 0.0 /100WBC 01/13/21 04:11 PT 14.10 SECONDS (12.1-14.9) 01/08/21 12:33 INR 1.06 (0.8-1.2) 01/08/21 12:33 APTT 36.6 SECONDS (23.9-36.7) 01/08/21 12:33 Sodium 136 mmol/L (136-145) 01/13/21 04:11 Potassium 4.0 mmol/L (3.5-5.1) 01/13/21 04:11 Chloride 100 mmol/L (98-107) 01/13/21 04:11 Carbon Dioxide 25 mmol/L (22-29) 01/13/21 04:11 Anion Gap 15.0 (5-19) 01/13/21 04:11 BUN 23 mg/dL (8-23) 01/13/21 04:11 Creatinine 0.6 mg/dL (0.5-0.9) 01/13/21 04:11 GFR Calculation 101.6 mL/min (90-130) 01/13/21 04:11 Glucose 101 mg/dL (65-115) 01/13/21 04:11 Estimat Average Glucose 100 01/09/21 02:55 Hemoglobin A1c 5.1 % (4.0-6.0) 01/09/21 02:55 Calculated Osmolality 286 mOsm/kg (285-295) 01/13/21 04:11 Lactate 1.0 mmol/L (0.5-2.2) 01/10/21 10:00 Calcium 9.1 mg/dL (8.5-10.5) 01/13/21 04:11 Phosphorus 3.1 mg/dL (2.5-4.5) 01/11/21 04:25 Magnesium 1.8 mg/dL (1.7-2.3) 01/11/21 04:25 Total Bilirubin 0.4 mg/dL (0.15-1.2) 01/13/21 04:11 AST 19 U/L (0-32) 01/13/21 04:11 ALT 22 U/L (0-33) 01/13/21 04:11 Alkaline Phosphatase 80 IU/L (35-105) 01/13/21 04:11 Troponin T Gen 5 ng/L 1081 ng/L (0-10) H* 01/10/21 02:57 NT-Pro-B Natriuret Pep 5372 pg/mL (0-125) H 01/08/21 12:33 Total Protein 6.9 g/dL (6.6-8.7) 01/13/21 04:11 Albumin 3.6 g/dL (3.5-5.2) 01/13/21 04:11 Globulin 3.3 g/dL (1.3-4.6) 01/13/21 04:11 Triglycerides 157 mg/dL (0-150) H 01/09/21 02:55 Cholesterol 158 mg/dL (0-200) 01/09/21 02:55 LDL Cholesterol, Calc 84 mg/dL (50-129) 01/09/21 02:55 HDL Cholesterol 43 mg/dL (60-100) L 01/09/21 02:55 LDL/HDL Ratio 1.95 RATIO (0.00-3.22) 01/09/21 02:55 Cholesterol/HDL Ratio 3.67 mg/dL (0.0-4.40) 01/09/21 02:55 Procalcitonin 0.07 ng/mL (0-0.5) 01/09/21 02:55 TSH 0.90 uIU/mL (0.27-4.20) 01/08/21 12:33 Urine Color Yellow (Yellow) 01/08/21 14:54 Urine Appearance Clear (CLEAR) 01/08/21 14:54 Urine pH 6 (5-7) 01/08/21 14:54 Ur Specific [place] 1.010 (1.005-1.030) 01/08/21 14:54 Urine Protein Neg (Negative) 01/08/21 14:54 Urine Glucose (UA) Norm (Normal) 01/08/21 14:54 Urine Ketones Negative (Negative) 01/08/21 14:54 Urine Blood Neg (Negative) 01/08/21 14:54 Urine Nitrate Negative (Negative) 01/08/21 14:54 Urine Bilirubin Neg (Negative) 01/08/21 14:54 Urine Urobilinogen Norm mg/dL (Negative) 01/08/21 14:54 Ur Leukocyte Esterase Negative (Negative) 01/08/21 14:54 A&P Assessment and plan (1) Acute on chronic systolic heart failure: The heart failure is currently compensated. In view of the patient is a complicated myocardial infarction, she requires a cardiac catheterization, to further evaluate the coronary status and decide on further management. This was discussed with the patient and family which they understood well and consented to proceed. The cardiac catheterization this morning. Based on the results, further recommendations will be made. Status: Acute (2) Non-ST elevated myocardial infarction (non-STEMI): Patient is on Plavix, beta-alize, aspirin, statin drug and heparin. After reviewing the cardiac catheterization data, further recommendations will be made. Status: Acute (3) Community acquired pneumonia: The pneumonia is improving. White cell count is back to baseline. Continue on the antibiotics. Status: Acute Qualifiers: Laterality: right Lung location: upper lobe of lung Qualified Code(s): J18.9 - Pneumonia, unspecified organism (4) Tobacco abuse: Smokes 2 pack a day for the last more than 30 years. She also smokes marijuana intermittently. No IV drug abuse or any other substance abuse. Advised strongly to quit smoking. She seems understand implications. Status: Acute (5) Elevated blood pressure reading: Blood pressure is in the normal range. May continue on the current medications. Status: Acute Additional A&P Information Other problems are Elevated liver enzymes, repeat LFT is within normal limits. Elevated white cell count, currently returned back to the baseline Mild hyponatremia, improving Anemia, has improved Patient is seen for the cardiac catheterization this morning. We will continue on the current medication for the time being. Based on the angiogram findings, further recommendations will be made. Addendum She underwent left and right heart catheterization with left and right coronary angiogram and LV angiogram today. She was found to have a mild pulmonary hypertension. LV ejection fraction was around 25% by LV angiogram. There was diffuse hypokinesia of the left ventricle. Cardiac catheterization revealed a high-grade lesion in the circumflex artery. 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 Moderate diffuse disease in the left anterior descending artery. He underwent PCI of the LAD and the circumflex artery lesions, by Dr. Hall. Attestations Medical Necessity Statement*: Patient requires continued hospital stay for close monitoring and further management Coding Level of Care Code Acute Switching Operator for g Fwd Exam Expanded Problem Focused Diagnoses Acute on chronic systolic heart failure I50.23 Non-ST elevated myocardial infarction (non-STEMI) I21.4 Community acquired pneumonia J18.9 Laterality: right Lung location: upper lobe of lung Tobacco abuse Z72.0 Elevated blood pressure reading R03.0
--- NOTE | 2021-01-13 10:14 | PC.CHAP ---
Pastoral Care Encounter/Spiritual Assessment Type of Contact [] Declined accounts receivable coordinator visit [] Patient/Family/Request visit [] Outpatient visit [] Follow-up visit [] Physician referral [] Code/Alert [] Routine visit [] Staff referral [] Actively dying [] Patient sleeping [] Family support [] [x] Out of room [] Palliative care [] [] Receiving care in room [] Pre-surgical visit [] Trauma [] Long length of stay [] ICU visit [] Other: Relational/Emotional Strength [] Patient feels connected with others/family/visitors/staff [] Distress [] Loneliness/isolation [] Abandonment Spirituality of Patient [] Person of Mayra [] Attends Roman Catholic of their Mayra [] Believes in Prayer [] Reads Bible or Spiritism materials [] There are Spiritual issues to be addressed Formula Checker Interventions [x] Prayer [] Active listening [] Non-anxious presence [] Spiritual/emotional support [] Crisis/trauma care [] Spiritual counseling [] Bereavement support [] Provided bereavement packet [] Provided Bible/devotional materials [] Provided toy/stuffed animal, coloring book to patient or family member [] Provided Communion [] Anointing/Jessie [] Salvation [x] Completed spiritual assessment [] Other: Impact on Illness or Injury [] Angry [] Fearful [] Anxious [] Often cries [] Exhaustion [] Unable to work [] Unable to attend mormon [] Unable to walk/stand [] Unable to read [] Unable to drive [] Unable to eat/drink [] Unable to sleep [] Unable to be with family [] Patient intubated [] Other: Summary Time spent with patient
--- NOTE | 2021-01-13 11:00 | PC.NURSE ---
Patient back from [facility] at this time patient is arousable however very sleepy unable to follow commands or take any po intake spoke with Dr. Rafael larson to hold dose of plavix until awake and give once she is able to take PO medication
[2021-01-13] MEDS: cefTRIAXone 1,000 MG in sodium chloride 0.9% (plus) 50 ML 100 MG IV (11:48)
[2021-01-13] MEDS: doxycycline 100 MG in sodium chloride 0.9% (plus) 100 ML IV (13:00)
[2021-01-13 14:41] LABS: Partial Thromboplastin Time 66.6 SECONDS (23.9-36.7)
--- NOTE | 2021-01-13 15:00 | PC.NURSE ---
Notified Dr monaco of patients PTT >45 at this time instructions to redraw PTT in 2 hours
[2021-01-13 16:44] LABS: Partial Thromboplastin Time 27.6 SECONDS (23.9-36.7)
[2021-01-13] MEDS: clopidogrel 75 mg Tablet PO (16:48)
--- NOTE | 2021-01-13 18:10 | PC.NURSE ---
sheath removed from right groin pressure held for 20 min no hematoma noted spoke with Dr Restrepo about nitro paste as well as lovenox orders instructions to DC both medications
[2021-01-13] MEDS: atorvastatin 40 mg Tablet PO (20:45)
[2021-01-13] MEDS: metoprolol tartrate 50 mg Tablet 75 MG PO (20:45)
[2021-01-13] MEDS: doxycycline 100 mg Tablet PO (20:45)
--- NOTE | 2021-01-13 21:20 | P.PN_ITS ---
Subjective Subjective: Interval history: Resting after angiography. Vitals/I&O/Wt Last Vital Signs Temp 97.5 F L 01/13/21 19:19 Pulse 103 H 01/13/21 19:19 Resp 24 H 01/13/21 19:19 BP 142/91 01/13/21 19:19 Pulse Ox 94 01/13/21 19:19 01/13/21 01/13/21 01/13/21 06:59 14:59 22:59 Intake Total 100 / 857.5 150 / 150 240 / 390 Output Total 0 / 0 Balance 100 / 857.5 150 / 150 240 / 390 Physical Exam Const: COMMON NORMALS: no acute distress GENERAL APPEARANCE: lethargic ORIENTATION/CONSCIOUSNESS: Yes lethargic HENMT: COMMON NORMALS: oropharynx normal Neck/C-Spine: COMMON NORMALS: no JVD Resp: COMMON NORMALS: normal respiratory effort and clear to auscultation bilaterally AUSCULTATION: clear to auscultation bilaterally Cardio: COMMON NORMALS: no JVD, regular rhythm, S1 normal heart sound present, S2 normal heart sound present and No murmurs present (Cardio) RHYTHM: regular rhythm HEART SOUNDS: S1 normal heart sound present and S2 normal heart sound present GI: COMMON NORMALS: Normal to inspection, nondistended, normoactive bowel sounds present, Soft to palpation and non-tender PALPATION: Yes Soft to palpation Extremity: COMMON NORMALS: no joint enlargement and no pedal edema OTHER: Right DP pulses present. Neuro: COMMON NORMALS: moves all extremities SENSORIUM/ORIENTATION: Yes lethargic Skin: COMMON NORMALS: no rashes or lesions noted GENERAL SKIN EXAM: no rashes or lesions noted Data : 01/13/21 04:11 01/13/21 04:11 A&P Assessment and plan (1) Non-ST elevated myocardial infarction (non-STEMI): Status post coronary angiography, PCI with 2 stents. Monitor following procedure. Status: Acute (2) Community acquired pneumonia: Gradually improving. Continue antibiotics. Continue attempts to wean off oxygen. Discussed with case management as she may require oxygen at discharge. Ceftriaxone, doxycycline. Continue oxygenation support. Wean off as tolerating. Status: Acute Qualifiers: Laterality: right Lung location: upper lobe of lung Qualified Code(s): J18.9 - Pneumonia, unspecified organism (3) Acute heart failure: Acute systolic heart failure. EF 35-40% Transitioned to oral Lasix. Monitor JOEL, although it appears it has been difficult to maintain a log of output. Status: Acute (4) COPD (chronic obstructive pulmonary disease): Not in exacerbation does not have; rhonchi, cough, and overall does not appear to have COPD exacerbation. Does have pneumonia as above. Status: Acute Qualifiers: COPD type: unspecified COPD Qualified Code(s): J44.9 - Chronic obstructive pulmonary disease, unspecified (5) Tobacco abuse: Encourage cessation. Status: Acute Attestations Medical Necessity Statement*: Requires continued admission for assessment management of non-STEMI, coronary disease, pneumonia, weaning off oxygen, preparation for discharge. Coding Level of Care Code Acute Building Economist for [facility] Fwd Diagnoses Non-ST elevated myocardial infarction (non-STEMI) I21.4 Community acquired pneumonia J18.9 Laterality: right Lung location: upper lobe of lung Acute heart failure I50.9 COPD (chronic obstructive pulmonary disease) J44.9 COPD type: unspecified COPD Tobacco abuse Z72.0
[2021-01-14] VITALS (12 sets, daily range): BP systolic 121–135; BP diastolic 65–85; PULSE 74–96; RESP 14–18; TEMP 36.6–36.9; O2SAT 90–100
--- NOTE | 2021-01-14 00:43 | PC.NURSE ---
NURSE NOTE: 6HRS POST CATH:0000. PT UP TO BEDSIDE. WALKED AROUND ROOM AND THEN TOOK SELF TO BATHROOM. GAIT STEADY WITHOUT ASSIST. DENIES WEAKNESS, PAIN, OR DIZZINESS UPON STANDING. RT FEMORAL SHEATH SITE/DRESSING CLEAN DRY AND INTACT. RIGHT WRIST SITE C/D/I. RIGHT ANTEBRACHIAL SITE OPEN TO AIR-NO DRAINAGE NOTED. ALL VS AND ASSESSMENTS CHARTED. RESTING WITH EYES CLOSED AT THIS TIME
[2021-01-14 04:05] LABS: Basophils # 0.1 10^3/uL (0.0-0.1); Basophils % 0.3 %; Eosinophils # 0.1 10^3/uL (0.0-0.8); Eosinophils % 0.6 %; Hematocrit 35.4 % (37.0-47.0); Hemoglobin 10.8 g/dL (11.5-15.3); Mean Corpuscular HGB Conc 30.5 g/dL (30.0-36.0); Mean Corpuscular Hemoglobin 28.7 pg (28.0-34.0); Mean Corpuscular Volume 94.1 fL (81-99); Mean Platelet Volume 9.8 fL (7.4-10.4); Monocytes # 1.1 10^3/uL (0.2-0.9); Monocytes % 6.9 %; Neutrophils # 11.93 10^3/uL (1.8-7.7); Neutrophils % 78.9 %; Nucleated Red Blood Cells % 0 %; Platelet Count 390 10^3/cmm (130-400); Red Blood Count 3.76 10^6/uL (4.1-5.3); Red Cell Distribution Width 14.9 % (12.1-15.1); White Blood Count 15.1 10^3/uL (4.0-10.0)
[2021-01-14 04:29] LABS: Alanine Aminotransferase 22 U/L (0-33); Albumin Level 3.5 g/dL (3.5-5.2); Alkaline Phosphatase 74 IU/L (35-105); Aspartate Amino Transferase 19 U/L (0-32); Blood Urea Nitrogen 21 mg/dL (8-23); Calcium 8.9 mg/dL (8.5-10.5); Carbon Dioxide 26 mmol/L (22-29); Chloride 102 mmol/L (98-107); Globulin 3.3 g/dL (1.3-4.6); Glomerular Filtration Rate 72.9 mL/min (90-130); Glucose 100 mg/dL (65-115); Osmolality Calculated 289 mOsm/kg (285-295); Sodium 138 mmol/L (136-145); Total Bilirubin 0.3 mg/dL (0.15-1.2); Total Protein 6.8 g/dL (6.6-8.7)
--- NOTE | 2021-01-14 05:36 | PC.NURSE ---
NURSE NOTE: SHIFT SUMMARY: PT ALERT AND ORIENTED X4, MOVES ALL EXTREMITIES AND FOLLOWS ALL COMMANDS. CATH SITES TO RIGHT GROIN, RIGHT ANTEBRACHIAL, AND RIGHT WRIST WNL. NO DRAINAGE NOTED. PT DENIES PAIN AT THIS TIME. ALL VS AND ASSESSMENTS CHARTED. CURRENTLY RESTING WITH EYES CLOSED, RESP EVEN AND NON LABORED. NO DISTRESS NOTED AT THIS TIME.
[2021-01-14] MEDS: aspirin 81 mg EC Tablet PO (08:26)
[2021-01-14] MEDS: potassium chloride ER 20 mEq Tablet 40 MEQ PO (08:26)
[2021-01-14] MEDS: multivitamin therapeutic Tablet 1 TAB PO (08:26)
[2021-01-14] MEDS: clopidogrel 75 mg Tablet PO (08:26)
[2021-01-14] MEDS: doxycycline 100 mg Tablet PO (08:26)
[2021-01-14] MEDS: losartan 50 mg Tablet 25 MG PO (08:27)
[2021-01-14] MEDS: FUROsemide 40 mg Tablet PO (08:27)
[2021-01-14] MEDS: spironolactone 25 mg Tablet PO (08:27)
[2021-01-14] MEDS: pantoprazole DR 40 mg Tablet PO (08:27)
[2021-01-14] MEDS: nicotine 21 mg Patch 1 PATCH TRANSDERMA (08:29)
[2021-01-14] MEDS: metoprolol tartrate 50 mg Tablet 75 MG PO (08:29)
--- NOTE | 2021-01-14 09:40 | P.PN_ITS ---
Subjective Medications: Reviewed: Yes Medication Review Details: Current Medications Acetaminophen (Acetaminophen 325 Mg Tablet) 650 mg PO Q6H PRN PRN Reason: MILD PAIN Al Hydrox/Mg Hydrox/Simethicone (Jlcq-Wft-Lrnrtwsvy-Sarah 30 Ml Udc) 30 ml PO Q15M PRN PRN Reason: INDIGESTION Albuterol/Ipratropium (Ipratropium-Albuterol 3 Ml Neb) 3 ml INHALATION Q6H PRN PRN Reason: SHORTNESS OF BREATH Alprazolam (Alprazolam 0.25 Mg Tablet) 0.25 mg PO TID PRN PRN Reason: ANXIETY Aspirin (Aspirin 81 Mg Ec Tablet) 81 mg PO DAILY [facility] Last Admin: 01/14/21 08:26 Dose: 81 mg Documented by: Atorvastatin Calcium (Atorvastatin 40 Mg Tablet) 40 mg PO BEDTIME [facility] Last Admin: 01/13/21 20:45 Dose: 40 mg Documented by: Bisacodyl (Bisacodyl 5 Mg Tablet) 10 mg PO DAILY PRN PRN Reason: CONSTIPATION Clopidogrel Bisulfate (Clopidogrel 75 Mg Tablet) 75 mg PO DAILY [facility] Last Admin: 01/14/21 08:26 Dose: 75 mg Documented by: Doxycycline Monohydrate (Doxycycline 100 Mg Tablet) 100 mg PO 0900,2100 [facility] Last Admin: 01/14/21 08:26 Dose: 100 mg Documented by: Fentanyl (Fentanyl 50 Mcg/Ml Inj 2ml) 50 mcg IVP PRN PRN PRN Reason: Prior to sheath removal Furosemide (Furosemide 40 Mg Tablet) 40 mg PO DAILY@0800 [facility] Last Admin: 01/14/21 08:27 Dose: 40 mg Documented by: Ceftriaxone Sodium 1,000 mg/ (Sodium Chloride) 50 mls @ 100 mls/hr IV Q24H [facility]; Protocol Last Infusion: 01/13/21 12:20 Dose: Infused Documented by: Losartan Potassium (Losartan 50 Mg Tablet) 25 mg PO DAILY [facility] Last Admin: 01/14/21 08:27 Dose: 25 mg Documented by: Magnesium Hydroxide (Magnesium Hydroxide 30 Ml Udc) 30 ml PO DAILY PRN PRN Reason: CONSTIPATION Metoprolol Tartrate (Metoprolol Tartrate 50 Mg Tablet) 75 mg PO BID@0900,2100 [facility] Last Admin: 01/14/21 08:29 Dose: 75 mg Documented by: Multivitamins Therapeutic (Multivitamin Therapeutic Tablet) 1 tab PO DAILY@08 [facility] Last Admin: 01/14/21 08:26 Dose: 1 tab Documented by: Naloxone HCl (Naloxone 0.4 Mg/Ml Sdv) 0.1 mg IVP Q2M PRN PRN Reason: RESPIRATORY RATE < 8/MIN Nicotine (Nicotine 21 Mg Patch) 1 patch TRANSDERMA DAILY [facility] Last Admin: 01/14/21 08:29 Dose: 1 patch Documented by: Nicotine Polacrilex (Nicotine 2 Mg Gum) 2 mg BUCCAL Q2H PRN PRN Reason: WITHDRAWAL Nitroglycerin (Nitroglycerin 0.4 Mg Sublingual Tablet) 0.4 mg SUBLINGUAL Q5M PRN PRN Reason: CHEST PAIN Ondansetron HCl (Ondansetron 2 Mg/Ml Sdv 2 Ml) 4 mg IVP Q8H PRN PRN Reason: vomiting, or N/V if npo Pantoprazole Sodium (Pantoprazole Dr 40 Mg Tablet) 40 mg PO DAILY [facility] Last Admin: 01/14/21 08:27 Dose: 40 mg Documented by: Potassium Chloride (Potassium Chloride Er 20 Meq Tablet) 40 meq PO DAILY [facility] Last Admin: 01/14/21 08:26 Dose: 40 meq Documented by: Spironolactone (Spironolactone 25 Mg Tablet) 25 mg PO DAILY [facility] Last Admin: 01/14/21 08:27 Dose: 25 mg Documented by: Temazepam (Temazepam 15 Mg Capsule) 15 mg PO BEDTIME PRN PRN Reason: INSOMNIA Vitals/I&O/Wt Last Vital Signs Temp 97.8 F 01/14/21 04:00 Pulse 84 01/14/21 08:00 Resp 18 01/14/21 08:00 BP 135/76 01/14/21 08:00 Pulse Ox 96 01/14/21 08:00 01/13/21 01/14/21 01/14/21 22:59 06:59 14:59 Intake Total 240 / 390 591 / 591 Balance 240 / 390 591 / 591 Physical Exam Narrative: EXAM NARRATIVE: GENERAL: The patient is alert and oriented times three. Not in any acute distress. HEENT: Minimal pallor,no icterus or lymphadenopathy. The pupils are symmetrical in size. Oral cavity: There are no mucous membrane lesions. NECK: Trachea appears to be central. No masses noted. No JVD or thyromegaly appreciated. No carotid bruit. RESPIRATORY: Chest is symmetrical. No intercostals muscle retraction or any accessory muscle activation. There is no chest wall tenderness. Breath sounds are heard bilaterally. No rales or rhonchi heard. No evidence of any consolidation. Few scattered crackles bilaterally BREASTS: Deferred. HEART: The heart sounds are normal. No S3 or S4. Short systolic murmur in the mitral area. No diastolic murmurs. ABDOMEN: No vessel pulsations or distention. No tenderness. No organomegaly appreciated. No abdominal bruit. Bowel sounds are normally heard. : Deferred. RECTAL: Deferred. LYMPHATIC: No lymphadenopathy noted in the neck or groin. EXTREMITIES: The right groin has no hematoma or bleeding. Good radial pulses . MUSCULOSKELETAL: No acute joint deformities or swelling. SKIN: There are no significant scars or skin rash noted. NEUROPSYCHIATRIC: No focal motor deficits. Const: COMMON NORMALS: alert Resp: COMMON NORMALS: clear to auscultation bilaterally AUSCULTATION: clear to auscultation bilaterally Neuro: SENSORIUM/ORIENTATION: Yes alert Data : 01/14/21 03:55 01/14/21 03:55 Other Labs: Laboratory Last Values WBC 15.1 10^3/uL (4.0-10.0) H 01/14/21 03:55 RBC 3.76 10^6/uL (4.1-5.3) L 01/14/21 03:55 Hgb 10.8 g/dL (11.5-15.3) L 01/14/21 03:55 Hct 35.4 % (37.0-47.0) L 01/14/21 03:55 MCV 94.1 fL (81-99) 01/14/21 03:55 MCH 28.7 pg (28.0-34.0) 01/14/21 03:55 MCHC 30.5 g/dL (30.0-36.0) D 01/14/21 03:55 RDW 14.9 % (12.1-15.1) 01/14/21 03:55 Plt Count 390 10^3/cmm (130-400) 01/14/21 03:55 MPV 9.8 fL (7.4-10.4) 01/14/21 03:55 Neut % (Auto) 78.9 % 01/14/21 03:55 Lymph % (Auto) 13.0 % 01/14/21 03:55 [place] % (Auto) 6.9 % 01/14/21 03:55 Eos % (Auto) 0.6 % 01/14/21 03:55 Baso % (Auto) 0.3 % 01/14/21 03:55 Neut # (Auto) 11.93 10^3/uL (1.8-7.7) H 01/14/21 03:55 Lymph # (Auto) 2.0 10^3/uL (0.8-4.8) 01/14/21 03:55 [place] # (Auto) 1.1 10^3/uL (0.2-0.9) H 01/14/21 03:55 Eos # (Auto) 0.1 10^3/uL (0.0-0.8) 01/14/21 03:55 Baso # (Auto) 0.1 10^3/uL (0.0-0.1) 01/14/21 03:55 Nucleated RBC % (auto) 0 % 01/14/21 03:55 Nucleated RBCs # 0.0 /100WBC 01/14/21 03:55 PT 14.10 SECONDS (12.1-14.9) 01/08/21 12:33 INR 1.06 (0.8-1.2) 01/08/21 12:33 APTT 27.6 SECONDS (23.9-36.7) D 01/13/21 16:21 Sodium 138 mmol/L (136-145) 01/14/21 03:55 Potassium 4.0 mmol/L (3.5-5.1) 01/14/21 03:55 Chloride 102 mmol/L (98-107) 01/14/21 03:55 Carbon Dioxide 26 mmol/L (22-29) 01/14/21 03:55 Anion Gap 14.0 (5-19) 01/14/21 03:55 BUN 21 mg/dL (8-23) 01/14/21 03:55 Creatinine 0.8 mg/dL (0.5-0.9) 01/14/21 03:55 GFR Calculation 72.9 mL/min (90-130) L 01/14/21 03:55 Glucose 100 mg/dL (65-115) 01/14/21 03:55 Estimat Average Glucose 100 01/09/21 02:55 Hemoglobin A1c 5.1 % (4.0-6.0) 01/09/21 02:55 Calculated Osmolality 289 mOsm/kg (285-295) 01/14/21 03:55 Lactate 1.0 mmol/L (0.5-2.2) 01/10/21 10:00 Calcium 8.9 mg/dL (8.5-10.5) 01/14/21 03:55 Phosphorus 3.1 mg/dL (2.5-4.5) 01/11/21 04:25 Magnesium 1.8 mg/dL (1.7-2.3) 01/11/21 04:25 Total Bilirubin 0.3 mg/dL (0.15-1.2) 01/14/21 03:55 AST 19 U/L (0-32) 01/14/21 03:55 ALT 22 U/L (0-33) 01/14/21 03:55 Alkaline Phosphatase 74 IU/L (35-105) 01/14/21 03:55 Troponin T Gen 5 ng/L 1081 ng/L (0-10) H* 01/10/21 02:57 NT-Pro-B Natriuret Pep 5372 pg/mL (0-125) H 01/08/21 12:33 Total Protein 6.8 g/dL (6.6-8.7) 01/14/21 03:55 Albumin 3.5 g/dL (3.5-5.2) 01/14/21 03:55 Globulin 3.3 g/dL (1.3-4.6) 01/14/21 03:55 Triglycerides 157 mg/dL (0-150) H 01/09/21 02:55 Cholesterol 158 mg/dL (0-200) 01/09/21 02:55 LDL Cholesterol, Calc 84 mg/dL (50-129) 01/09/21 02:55 HDL Cholesterol 43 mg/dL (60-100) L 01/09/21 02:55 LDL/HDL Ratio 1.95 RATIO (0.00-3.22) 01/09/21 02:55 Cholesterol/HDL Ratio 3.67 mg/dL (0.0-4.40) 01/09/21 02:55 Procalcitonin 0.07 ng/mL (0-0.5) 01/09/21 02:55 TSH 0.90 uIU/mL (0.27-4.20) 01/08/21 12:33 Urine Color Yellow (Yellow) 01/08/21 14:54 Urine Appearance Clear (CLEAR) 01/08/21 14:54 Urine pH 6 (5-7) 01/08/21 14:54 Ur Specific [place] 1.010 (1.005-1.030) 01/08/21 14:54 Urine Protein Neg (Negative) 01/08/21 14:54 Urine Glucose (UA) Norm (Normal) 01/08/21 14:54 Urine Ketones Negative (Negative) 01/08/21 14:54 Urine Blood Neg (Negative) 01/08/21 14:54 Urine Nitrate Negative (Negative) 01/08/21 14:54 Urine Bilirubin Neg (Negative) 01/08/21 14:54 Urine Urobilinogen Norm mg/dL (Negative) 01/08/21 14:54 Ur Leukocyte Esterase Negative (Negative) 01/08/21 14:54 A&P Assessment and plan (1) Acute on chronic systolic heart failure: Patient was found to have severe LV systolic dysfunction with ejection fraction around 30%. And is started on Entresto 24/ 1 tablet twice daily. The losartan may be discontinued. I also will cut back on the dose of Lasix to 20 mg p.o. daily. May continue on the current medications as it is. Patient also would benefit from a LifeVest. This was discussed with the patient in detail which he understood well. Status: Acute (2) Non-ST elevated myocardial infarction (non-STEMI): Patient may continue on the baby aspirin and Plavix. Status: Acute (3) Community acquired pneumonia: The pneumonia is improving. White cell count is back to baseline. Management as per the primary Status: Acute Qualifiers: Laterality: right Lung location: upper lobe of lung Qualified Code(s): J18.9 - Pneumonia, unspecified organism (4) Tobacco abuse: Once again the patient advised strongly to quit smoking Status: Acute (5) Elevated blood pressure reading: Blood pressure is in the normal range. May continue on the current medications. Status: Acute Additional A&P Information Other problems are Elevated liver enzymes, repeat LFT is within normal limits. Elevated white cell count, currently returned back to the baseline Mild hyponatremia, improving Anemia, has improved more stable If the patient continues remain stable, may be discharged home today with a LifeVest. Patient will be seen in the clinic in 1 week by the nurse practitioner. I may see her in the office in 3 weeks. Attestations Medical Necessity Statement*: Possible discharge home today Coding Level of Care Code Acute Moderate Needs Teacher for Ermelinda Brown Diagnoses Acute on chronic systolic heart failure I50.23 Non-ST elevated myocardial infarction (non-STEMI) I21.4 Community acquired pneumonia J18.9 Laterality: right Lung location: upper lobe of lung Tobacco abuse Z72.0 Elevated blood pressure reading R03.0
--- NOTE | 2021-01-14 11:27 | PC.NURSE ---
Ceftriaxone not administered due to IV not being patent. Removed IV and Spoke with Dr. Del Valle. Pt will be switched to a PO antibiotic.
--- NOTE | 2021-01-14 13:35 | P.DS_ITS ---
Discharge Providers Date of Admission: 01/08/21 07:21 Date of Discharge: January 14, 2021 Attending Provider at Admission: Kaci Weber MD Attending Provider at Discharge: Juan Alberto Del Valle Diagnoses at Discharge Discharge Diagnosis (1) Acute on chronic systolic heart failure: Status: Acute (2) Non-ST elevated myocardial infarction (non-STEMI): Status: Acute (3) Community acquired pneumonia: Status: Acute Qualifiers: Laterality: right Lung location: upper lobe of lung Qualified Code(s): J18.9 - Pneumonia, unspecified organism (4) Tobacco abuse: Status: Acute (5) Elevated blood pressure reading: Status: Acute Reason for Visit Reason for Visit: ELEVATED TROPONIN / DIRECT ADMIT Hospital Course Hospital Course Pleasant 60-year-old lady with history of smoking, COPD was admitted due to gradually worsening shortness of breath over about 3 days prior to admission. She was transferred here from [facility] where she was found to have NSTEMI, acute heart failure. Was initiated on medical therapy, seen by cardiology, with noted ejection fraction 35-40% on echocardiography, although with unknown baseline. She is a long-term heavy smoker, with reported history of heart disease in the family. Also noted with hypertension while monitoring the hospital. Was treated with Lasix, potassium supplementation for heart failure. With progressive hypoxia, rising leukocytosis, also assessed by chest x-ray and found to have right upper lobe pneumonia. Additional cardiac assessment had been delayed until hypoxia, pulmonary infection under better control. Was treated with Rocephin, doxycycline. Noted transient liver enzyme elevation which improved. May benefit from follow-up. With treatment pneumonia gradually improved. CHF improving. Hypoxia decreasing. She underwent coronary angiographic evaluation with finding of mild pulmonary hypertension on right heart catheterization, left heart catheterization revealed LV 25% by LV gram. Diffuse hypokinesia of left ventricle. Cardiac catheterization revealed high- grade lesion in circumflex artery, total occlusion of proximal right coronary artery. Moderate diffuse disease in the left anterior descending artery. She underwent PCI of LAD and circumflex artery lesions. She did well following coronary angiography. Remains chest pain-free. CHF improving. Due to severely depressed EF started on Entresto. LifeVest has been recommended to her and discussed in detail. Due to financial difficulties she is in process of arrangements of this and needs to deliver paperwork to [facility] she intends to do as soon as she gets home. Physical Exam Const: COMMON NORMALS: no acute distress and alert GENERAL APPEARANCE: cooperative and comfortable ORIENTATION/CONSCIOUSNESS: Yes awake OTHER: Luz bullard denies any discomfort. She is in good spirits. Denies any chest pain or pressure. She is breathing great. Walked with RT, did not qualify for oxygen. She is very eager to return home. States that she has not so far had any further cravings for smoking, and intends to quit. HENMT: COMMON NORMALS: oropharynx normal Neck/C-Spine: COMMON NORMALS: no JVD Resp: COMMON NORMALS: normal respiratory effort and clear to auscultation bilaterally AUSCULTATION: clear to auscultation bilaterally Cardio: COMMON NORMALS: no JVD, regular rhythm, S1 normal heart sound present, S2 normal heart sound present and No murmurs present (Cardio) RHYTHM: regular rhythm HEART SOUNDS: S1 normal heart sound present and S2 normal heart sound present GI: COMMON NORMALS: Normal to inspection, nondistended, normoactive bowel sounds present, Soft to palpation and non-tender PALPATION: Yes Soft to palpation Extremity: COMMON NORMALS: no joint enlargement and no pedal edema Neuro: COMMON NORMALS: moves all extremities SENSORIUM/ORIENTATION: Yes alert Skin: COMMON NORMALS: no rashes or lesions noted GENERAL SKIN EXAM: no rashes or lesions noted Discharge Data Data Completed and Pending: Completed Studies During Hospitalization Category Date Time Status XR chest 1V henrique ble [id number] Routine Exams 01/10/21 09:32 Completed XR chest 2V* [id number] Routine Exams 01/12/21 06:00 Completed CV echo complete* [id number] Routine Ultrasound 01/08/21 13:43 Completed Pending at discharge Category Date Time Status [employer]ILRO[employer] CR[employer]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 request 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 Routin e Exams 01/13/21 07:00 Taken Blood Culture Sta t Lab 01/10/21 11:00 Results Complete Blood Co unt w/Auto AM LABS Lab 01/15/21 04:00 Ordered Complete Blood Co unt w/Auto AM LABS Lab 01/16/21 04:00 Ordered Comprehensive Met abolic Panel AM LA BS Lab 01/15/21 04:00 Ordered Comprehensive Met abolic Panel AM LA BS Lab 01/16/21 04:00 Ordered Sputum Culture an d Gram Stain Sofiya valadez Lab 01/10/21 10:03 Uncollected Labs from last 24 hours 01/14/21 01/14/21 01/13/21 03:55 03:55 16:21 WBC 15.1 H RBC 3.76 L Hgb 10.8 L Hct 35.4 L MCV 94.1 MCH 28.7 MCHC 30.5 D RDW 14.9 Plt Count 390 MPV 9.8 Neut % (Auto) 78.9 Lymph % (Auto) 13.0 [place] % (Auto) 6.9 Eos % (Auto) 0.6 Baso % (Auto) 0.3 Neut # (Auto) 11.93 H Lymph # (Auto) 2.0 [place] # (Auto) 1.1 H Eos # (Auto) 0.1 Baso # (Auto) 0.1 Nucleated RBC % (a uto) 0 Nucleated RBCs # 0.0 APTT 27.6 D Sodium 138 Potassium 4.0 Chloride 102 Carbon Dioxide 26 Anion Gap 14.0 BUN 21 Creatinine 0.8 GFR Calculation 72.9 L Glucose 100 Calculated Osmolal ity 289 Calcium 8.9 Total Bilirubin 0.3 AST 19 ALT 22 Alkaline Phosphata se 74 Total Protein 6.8 Albumin 3.5 Globulin 3.3 01/13/21 14:09 WBC RBC Hgb Hct MCV MCH MCHC RDW Plt Count MPV Neut % (Auto) Lymph % (Auto) [place] % (Auto) Eos % (Auto) Baso % (Auto) Neut # (Auto) Lymph # (Auto) [place] # (Auto) Eos # (Auto) Baso # (Auto) Nucleated RBC % (a uto) Nucleated RBCs # APTT 66.6 H Sodium Potassium Chloride Carbon Dioxide Anion Gap BUN Creatinine GFR Calculation Glucose Calculated Osmolal ity Calcium Total Bilirubin AST ALT Alkaline Phosphata se Total Protein Albumin Globulin Vitals: Last Vital Signs Temp 97.8 F 01/14/21 04:00 Pulse 74 01/14/21 11:47 Resp 16 01/14/21 11:47 BP 125/75 01/14/21 11:47 Pulse Ox 96 01/14/21 11:47 Discharge Plan Discharge Patient Disposition: Home Condition: Stable Prescriptions: New pantoprazole 40 mg Tablet,Delayed Release (Dr/Ec) 40 mg PO DAILY Qty: 30 RF: 0 atorvastatin 40 mg Tablet 40 mg PO BEDTIME Qty: 30 RF: 0 nicotine 21 mg/24 hr Patch 24 Hour 1 patch transdermal DAILY Qty: 30 RF: 0 clopidogrel 75 mg Tablet 75 mg PO DAILY Qty: 30 RF: 0 doxycycline monohydrate 100 mg Tablet 100 mg PO 0900,2100 Qty: 8 RF: 0 Entresto 24-26 mg Tablet 1 ea PO BID Qty: 60 RF: 0 aspirin 81 mg Tablet,Delayed Release (Dr/Ec) 81 mg PO DAILY Qty: 30 RF: 0 spironolactone 25 mg Tablet 25 mg PO DAILY Qty: 30 RF: 0 metoprolol tartrate 50 mg Tablet 75 mg PO BID@0900,2100 Qty: 90 RF: 0 furosemide 20 mg Tablet 20 mg PO DAILY@0800 Qty: 30 RF: 0 Continued multivitamin Tablet 1 tab PO DAILY@08 RF: 0 Discontinued Advil 200 mg Tablet 200 mg PO PRN RF: 0 potassium gluconate 595 mg (99 mg) Tablet See Rx Instructions .ROUTE .COMPLEX RF: 0 aspirin 1 - 2 tab PO PRN RF: 0 Referrals: Nikki Restrepo MD [Physician] - 1 month ([facility] will be calling to schedule a cardiology followup with Dr. Restrepo to be seen in 1 month. If you don't hear from them by Sunday afternoon, please give them a call. Thank you) TREVA Gaytan FNP [Nurse Practitioner] - 01/19/21 9:00 am (You have a hospital followup with TREVA Gaytan at [facility] on January 19 at 9:00am) Angeles Chambers FNP [Nurse Practitioner] - 1 week ([facility] will be calling to schedule a post procedure followup with CAITLIN Fernando to be seen in 1 week. If you don't hear from them by Sunday afternoon, please give them a call. Thank you) Discharge Diet: Cardiac Discharge Activity: Increase activity as tolerated and Limit activity as instructed Patient Instructions: Metoprolol (By mouth), Spironolactone (By mouth), Doxycycline (By mouth), Aspirin (By mouth), Atorvastatin (By mouth), Clopidogrel (By mouth), Pantoprazole (By mouth), Heart Failure (GEN), Coronary Artery Dis ease (GEN), Left Heart Catheterization (DC), Coronary Angioplasty (DC), How to Stop Smoking (GEN), Cigarette Smoking and Your Health (GEN), Post Angiogram Home Care Instructions, Post Heart Attack Stoplight Activity Restrictions/Additional Instructions: Please have your primary care doctor follow-up and recheck your renal function, potassium, some of the medications you are prescribed may affect these. Please follow-up with cardiology in office. Discussed with your primary care doctor regarding pneumonia, as well as coronary artery disease and heart attack you were assessed and treated for now hospital. Please discuss with your primary care doctor regarding severe congestive heart failure (weak heart), with low ejection fraction with increased risk of arrhythmia. Discuss with your primary care doctor, and pursue arrangements for LifeVest as planned. Please stop smoking. You are provided with nicotine patch prescription, but you may also use lozenges in addition for cravings. Please work with your primary care doctor to help you quit smoking. Please monitor blood pressure at home, measured 3 times daily, record values to bring to your appointment. Discharge Attestations Time Spent in Discharge Care*: greater than 30 min Quality Metrics Clinical Quality Measures During this hospital stay, did patient experience: AMI Clinical Trial Participant: No Contraindication to aspirin (AMI): Aspirin given Contraindication to statin: Statin prescribed Contraindication to PCI: PCI performed Coding Level of Care Code Acute [employer] Office Instructor for g Fwd Exam Comprehensive Diagnoses Acute on chronic systolic heart failure I50.23 Non-ST elevated myocardial infarction (non-STEMI) I21.4 Community acquired pneumonia J18.9 Laterality: right Lung location: upper lobe of lung Tobacco abuse Z72.0 Elevated blood pressure reading R03.0
--- NOTE | 2021-01-14 17:07 | PC.NURSE ---
patient discharged home at this time patient provided with all discharge instructions as well as medications delivered to bedside patient educated on new medications and post angio site care patient verbalized understanding of all instructions and education provided. patient assisted to wheelchair and accompanied to private vehicle all belongings in hand.
== END 2021-01-14 17:00 | disposition home or self-care (01) | DRG 246 ==
LOC: ER 08:17 → CSU 08:49
PROVIDERS: Internal Medicine; Internal Medicine Cardiovascular Disease; Admitting Provider Hospitalist; Emergency Provider Emergency Medicine; Visit Provider Internal Medicine
PROC: 027135Z Dilation of Coronary Artery, Two Arteries with Two Drug-eluting Intraluminal Devices, Percutaneous Approach (ICD-10-PCS; principal; 2021-01-13 08:30)
DX: I21.4 Non-ST elevation (NSTEMI) myocardial infarction (principal); J18.9 Pneumonia, unspecified organism; I50.23 Acute on chronic systolic (congestive) heart failure; J44.0 Chronic obstructive pulmonary disease with (acute) lower respiratory infection; E87.1 Hypo-osmolality and hyponatremia; I11.0 Hypertensive heart disease with heart failure; I25.10 Atherosclerotic heart disease of native coronary artery without angina pectoris; F17.210 Nicotine dependence, cigarettes, uncomplicated; F12.90 Cannabis use, unspecified, uncomplicated; D64.9 Anemia, unspecified; Z82.49 Family history of ischemic heart disease and other diseases of the circulatory system
CPT/HCPCS: 36415; 71045; 71046; 80048; 80053; 80061; 81003; 83036; 83605; 83735; 83880; 84100; 84145; 84443; 84484; 85025; 85347; 85610; 85730; 87040; 93005; 93306; 93453; 93571; 94664; 96372; 99285; C1725; C1751; C1769; C1874; C1887; C1894; C9600; C9601; J0153; J0696; J1644; J1650; J1940; J2250; J3010; J3490; J7030; Q0163; Q9967

== ENCOUNTER → 2021-01-19 09:58 | Outpatient (BNVA) | payer MEDICAID, SELFPAY | PROVIDERS: Visit Provider Nurse Practitioner Family | DX: J18.9 Pneumonia, unspecified organism (principal); J44.9 Chronic obstructive pulmonary disease, unspecified | CPT/HCPCS: 71046 ==

== ENCOUNTER → 2021-01-31 14:15 | Outpatient (BNVA) | payer MEDICAID, SELFPAY | PROVIDERS: PCP Nurse Practitioner Family; Visit Provider Nurse Practitioner Family | DX: I25.5 Ischemic cardiomyopathy (principal) | CPT/HCPCS: 80048 ==

== ENCOUNTER → 2021-02-18 10:44 | Outpatient (BNVA) | payer MEDICAID, SELFPAY | PROVIDERS: PCP Nurse Practitioner Family; Visit Provider Internal Medicine Pulmonary Disease | DX: J44.9 Chronic obstructive pulmonary disease, unspecified (principal); I10 Essential (primary) hypertension; I50.22 Chronic systolic (congestive) heart failure; C15.5 Malignant neoplasm of lower third of esophagus | CPT/HCPCS: 80048; 83880; 87635 ==

== ENCOUNTER → 2021-03-10 00:01 | Outpatient (BNVA) | payer MEDICAID, SELFPAY | PROVIDERS: PCP Nurse Practitioner Family; Visit Provider Internal Medicine Pulmonary Disease | DX: Z20.822 Contact with and (suspected) exposure to COVID-19 (principal); I25.5 Ischemic cardiomyopathy; I50.22 Chronic systolic (congestive) heart failure; L29.8 Other pruritus; T50.905A Adverse effect of unspecified drugs, medicaments and biological substances, initial encounter | CPT/HCPCS: 80053; 83880; 87635 ==

== ENCOUNTER 2021-03-16 14:25 | Outpatient (CLI) | payer MEDICAID, SELFPAY ==
--- NOTE | 2021-03-16 14:35 | CT_ITS ---
WS: [id number] LDCT LUNG CANCER SCREENING TECHNIQUE: Noncontrast CT of the chest with coronal and sagittal reformatted images. CLINICAL INFORMATION: NICOTINE DEPENDENCE,CIGARETTES COMPARISON: None. DLP: 63.29 mGy.cm DIvol: 1.[address] scans at [facility] use at least one of these dose optimization techniques: automat ed exposure control; mA and/or kV adjustment per patient size (includes targeted exams where dose is matched to clinical indication); or iterative reconstruction. FINDINGS: Mild chronic emphysematous changes. No acute pulmonary infiltrates. Subsegmental atelectasis in the r ight lower lobe. 4 mm noncalcified nodule right upper lobe. Right apical fibrosis. Slight tree-in-bud nodularity in the mid and upper lungs likely inflammatory. Slightly ectatic ascending thoracic aorta measuring 3.5 CM. Chronic appearing calcified dissection flap in the lower thoracic aorta. Adrenal glands are normal. Normal GE junction. No axillary lymphadenopathy. No mediastinal or hilar l ymphadenopathy. Vascular calcification including coronary. Partially visualized aneurysmal upper abdominal aorta measuring 3.1 x 3.1 cm. Moderate thoracic kypho sis. Numerous chronic compression deformities in the mid thoracic spine with anterior wedging. Additi onal upper thoracic spine superior endplate compression fractures with a chronic appearance. Compress ion deformities most prominent at T3-T5 and T7-T11. IMPRESSION: RECOMMEND CTA CHEST ABDOMEN PELVIS FOR FURTHER EVALUATION OF THE ANEURYSMAL ABDOMINAL AO RTA AND CHRONIC APPEARING CALCIFIED DISSECTION FLAP IN THE LOWER THORACIC AORTA. CT/CT lung screening [id number] LUNG-RADS: 2-Benign Appearance or Behavior FOLLOW UP: 12 Month: Continue annual screening with LDCT
--- NOTE | 2021-03-16 14:45 | PFTS_ITS ---
Date of Study:03/16/21 Date of Dictation: MECHANICS: Forced vital capacity (FVC) is normal. Forced expiratory volume in one second (FEV1) is reduced. FEV1/FVC is reduced. FLOW VOLUME LOOP: Reduced flow at all lung volumes with significant scooping. LUNG VOLUMES: Total lung capacity (TLC) is increased. Residual volume (RV) is increased. DIFFUSING CAPACITY FOR CARBON MONOXIDE: Severely reduced. INTERPRETATION: The pulmonary function tests are consistent with moderate airflow obstruction. There is no significant postbronchodilator response. Lung volumes are consistent with hyperinflation and air trapping. Gas exchange (DLCO) is severely reduced. MTDD
== END 2021-03-16 14:26 | disposition home or self-care (01) ==
LOC: RT 14:26
PROVIDERS: PCP Nurse Practitioner Family; Visit Provider Internal Medicine Pulmonary Disease
DX: Z12.2 Encounter for screening for malignant neoplasm of respiratory organs (principal); F17.210 Nicotine dependence, cigarettes, uncomplicated; J44.9 Chronic obstructive pulmonary disease, unspecified
CPT/HCPCS: 71271; 94060; 94726; 94729; J7611

== ENCOUNTER → 2022-03-16 00:01 | Outpatient (BNVA) | payer MEDICAID, SELFPAY | PROVIDERS: PCP Nurse Practitioner Family; Visit Provider Nurse Practitioner | DX: I10 Essential (primary) hypertension (principal); Z79.899 Other long term (current) drug therapy; N63.10 Unspecified lump in the right breast, unspecified quadrant | CPT/HCPCS: 80048; 84443; 85025 ==

== ENCOUNTER 2022-03-30 09:03 | Outpatient (CLI) | payer MEDICAID, SELFPAY ==
--- NOTE | 2022-03-30 09:11 | CT_ITS ---
WS: [id number] CT ANGIOGRAPHY chest, abdomen and pelvis. HISTORY: I71.4 - Abdominal aortic aneurysm, without rupture TECHNIQUE: Pre and postcontrast imaging performed. CT angiogram is performed during IV injection. Ref ormation images reviewed. All CT scans at [facility] use at least one of these dose optimizati on techniques: automated exposure control; mA and/or kV adjustment per patient size (includes targete d exams where dose is matched to clinical indication); or iterative reconstruction. CONTRAST: Omnipaque 350; 95 mL IV. DLP: 1548.78 mGy.cm COMPARISON: 03/16/2021 Chronic emphysema. Noncalcified 4 mm nodule RIGHT upper lobe is stable. There are numerous tiny perip heral 2 to 3 mm nodules which may be the distal airways. No new or increasing size of nodule or mass. These are probably postinflammatory changes. Well-circumscribed soft tissue 10 mm nodule anterior ch est wall to the cyst mid body of the sternum is probably a small sebaceous cyst. Thoracic aorta: Extensive atherosclerotic plaque throughout the aorta. Aorta is ectatic with the prox imal transverse diameter of 3.3 cm. Normal descending thoracic aortic diameter. There is a mixture of calcified plaque and intimal thickening. There is a focal ulceration filling with contrast in the di stal thoracic aorta. The ulceration measures 7 mm. The possible very short dissection in the distal t horacic aorta which is again identified without increase in size. Abdominal aorta: Extensive atherosclerotic plaque and intimal thickening within the abdominal aorta. Maximum transverse diameter of 3.4 cm. There is a moderate amount of calcified plaque at the origin o f the renal arteries. There is at least 50% stenosis proximal celiac axis. Origin of the celiac axis is obscured by dense calcification but suspect there is also a component of at least moderate steno sis. Severe calcification extends into the proximal iliac arteries. There is both intimal thickening and calcification with at least 50% stenosis. Mild aneurysmal dilatation of the RIGHT common iliac ar erlinda. 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 High-grade stenosis suspected at the origin of the LEF T common iliac artery. Dense calcification obscures the lumen. Multifocal areas of [id number] s tenosis of 50-60% in the LEFT external iliac artery. Small hiatal hernia. Liver, gallbladder, spleen and adrenal glands are negative. There is mild hyperp lasia of the adrenal glands. Mild atrophy RIGHT kidney with cortical thinning and a few small cortica l masses which cannot be further characterized. Cyst versus early neoplasm. Negative LEFT kidney. No ascites or adenopathy. No GI tract obstruction. No urinary bladder abnormality. Osteoporotic compression fractures at T3, T4, T5, T7, T8, T9, T10. CT/CT angio chest abdomen pelvis IMPRESSION: 1. Moderate atherosclerosis with ectasia throughout the thoracic aorta. No ane urysm. Calcified and noncalcified plaque. 2. Plaque ulceration measuring 7 mm in the distal thoracic aorta. 3. Abdominal aortic aneurysm 3.4 cm with extensive plaque. Soft plaque and yun cified plaque. Multifocal areas of moderate to severe stenosis involving the il iac arteries bilaterally. 4. 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
[2022-03-30] MEDS: iohexol 350 mg/mL 100 mL Btl IV (10:48)
== END 2022-03-30 09:04 | disposition home or self-care (01) ==
LOC: RAD 09:04
PROVIDERS: PCP Nurse Practitioner Family; Visit Provider Nurse Practitioner
DX: I71.4 Abdominal aortic aneurysm, without rupture (principal)
CPT/HCPCS: 71275; 74174